=== PATIENT | female | born 1990 | race Caucasian/White ===

== ENCOUNTER 2019-02-25 14:53 | Outpatient (CLI) | payer BC | END 2019-02-25 14:54 | disposition home or self-care (01) | LOC: LAB 14:53 | PROVIDERS: ATTEND Nurse Practitioner Obstetrics & Gynecology | DX: Z32.01 Encounter for pregnancy test, result positive (principal) | CPT/HCPCS: 36415; 84702 ==

== ENCOUNTER 2019-04-05 08:11 | Outpatient (CLI) | payer BC ==
--- NOTE | 2019-04-05 10:36 | Ultrasound Report ---
Reason: TEST POSITIVE Procedure Date: 04/05/2019 Accession Number: [id number] / [id number] Procedure: US - OB First Trimester CPT Code: Final Report FULL RESULT: EXAM: PELVIC ULTRASOUND EXAM DATE: 04/05/2019 09:19 AM. CLINICAL HISTORY: TEST POSITIVE. COMPARISON: None. TECHNIQUE: Realtime transabdominal pelvic scan performed to identify the uterus and adnexa and as an overview of other pelvic structures, followed by transvaginal scan to provide greater detail of the uterus and adnexa, with static image documentation. FINDINGS: Uterus: 5 x 3 x 10 cm, volume cc. Anteverted position. Normal overall size and echotexture. Masses: None. Endometrium: 7 mm. Normal. No intrauterine gestational sac. Cervix: Unremarkable. Right Ovary: 3.5 x 1.7 x 2.1 cm, volume 6.5 cc. Normal echotexture and blood flow. Left Ovary: 2.5 x 2.0 2.0 cm, volume 5.2 cc. Normal echotexture and blood flow. Free Fluid: None. Other: None. IMPRESSION: 1. No intrauterine gestational sac. 2. Sonographically normal uterus and adnexa. Discussed findings with BERNIE GARCIA
== END 2019-04-05 08:12 | disposition home or self-care (01) ==
LOC: DI 08:11
PROVIDERS: ATTEND Nurse Practitioner Obstetrics & Gynecology
DX: Z32.01 Encounter for pregnancy test, result positive (principal); O03.9 Complete or unspecified spontaneous abortion without complication
CPT/HCPCS: 36415; 76801; 84702

== ENCOUNTER 2019-04-05 14:35 | Outpatient (CLI) | payer BC | END 2019-04-05 14:36 | disposition home or self-care (01) | LOC: LAB.S 14:35 | PROVIDERS: ATTEND Nurse Practitioner Obstetrics & Gynecology | DX: O03.9 Complete or unspecified spontaneous abortion without complication (principal) | CPT/HCPCS: 36415; 84702 ==

== ENCOUNTER 2020-01-22 12:16 | Outpatient (CLI) | payer OTHER | END 2020-01-22 12:17 | disposition home or self-care (01) | LOC: COV 12:16 | PROVIDERS: ATTEND Family Medicine | DX: Z20.828 Contact with and (suspected) exposure to other viral communicable diseases (principal) ==

== ENCOUNTER 2020-04-19 17:03 | Outpatient (CLI) | payer OTHER ==
[2020-04-19 17:20] LABS: HGB - HEMOGLOBIN 14.3 g/dL (12.0-16.0); MEAN CORPUSCULAR HEMOGLOBIN 29.7 pg (27.0-31.0); MEAN CORPUSCULAR HGB CONC 33.4 g/dL (32.0-36.0); MEAN PLATELET VOLUME 9.7 fL (7.9-10.8); RED BLOOD COUNT 4.81 10^6/uL (4.20-5.40); RED CELL DISTRIBUTION WIDTH 12.1 % (12.0-15.0); WHITE BLOOD COUNT 8.9 x10^3/uL (4.8-10.8)
[2020-04-19 17:46] LABS: T4 (THYROXINE) 6.43 ug/dL (6.09-12.23)
[2020-04-19 17:50] LABS: THYROID STIMULATING HORMONE 1.55 uIU/mL (0.34-5.60)
== END 2020-04-19 17:04 | disposition home or self-care (01) ==
LOC: LAB 17:03
PROVIDERS: ATTEND Nurse Practitioner Obstetrics & Gynecology
DX: N93.9 Abnormal uterine and vaginal bleeding, unspecified (principal)
CPT/HCPCS: 84436; 84443; 85027

== ENCOUNTER 2020-05-06 14:07 | Outpatient (CLI) | payer OTHER ==
--- NOTE | 2020-05-06 16:28 | Ultrasound Report ---
PROCEDURE: Pelvic w/Transvaginal INDICATIONS: MENSTRUAL BLEEDING, ABN TECHNIQUE: Real-time scanning was performed of the pelvic organs, with image documentation. Additional endovagi nal scanning was necessary due to incomplete visualization of the adnexal and endometrial structures by transabdominal scanning. COMPARISON: None. FINDINGS: No pathologic free abdominal or pelvic fluid. Uterus: Uterus is normal in size at 8.9 x 4.3 x 5.0 cm. Volume measures 10 2 mL. The endometrium me asures 7 mm in combined thickness. Nabothian cysts are noted. Ovaries: Left ovary measures 3.0 x 1.9 x 2.3 cm, volume 6.8 mL. Multiple cysts are noted, all less t cortez 1 cm in size. Right ovary measures 2.1 x 1.5 x 1.9 cm, volume 3.2 mL. Multiple cysts are noted all less than 1 cm i n size. IMPRESSION: Unremarkable exam. Reviewed by: Aruna Trujillo MD on 05/06/2020 4:27 PM PST Approved by: Aruna Trujillo MD on 05/06/2020 4:27 PM PST Station ID: [id number]
== END 2020-05-06 14:08 | disposition home or self-care (01) ==
LOC: DI 14:07
PROVIDERS: ATTEND Nurse Practitioner Obstetrics & Gynecology
DX: N93.9 Abnormal uterine and vaginal bleeding, unspecified (principal)

== ENCOUNTER 2020-06-20 18:51 | Outpatient (CLI) | payer OTHER ==
--- NOTE | 2020-06-21 08:30 | Ultrasound Report ---
PROCEDURE: Pelvic Complete INDICATIONS: LOWER ABD PAIN TECHNIQUE: Real-time transabdominal scanning was performed of the pelvic organs, with image documentation. COMPARISON: 05/06/2020 pelvic ultrasound FINDINGS: Uterus: Uterus is normal in size at 4.2 x 5.1 x 10.4 cm. Endometrium measures 3.4 mm in combined th ickness. Ovaries: The right ovary measures 3.1 x 2.3 x 2.4 cm and the left measures 2.5 x 2.1 x 2.6 cm. A fol licular cyst on the left isn't 1.1 cm in maximal dimension. Transabdominal scanning only at patient r equest. Other: No free pelvic fluid. IMPRESSION: Normal pelvic ultrasound. Small follicular cyst incidentally noted at the left ovary. A definite sour ce of pain is not found. Reviewed by: Dre White MD on 06/21/2020 8:28 AM PDT Approved by: Dre White MD on 06/21/2020 8:28 AM PDT Station ID: [id number]
== END 2020-06-20 18:52 | disposition home or self-care (01) ==
LOC: DI 18:51
PROVIDERS: ATTEND Family Medicine
DX: R10.30 Lower abdominal pain, unspecified (principal); N83.02 Follicular cyst of left ovary

== ENCOUNTER 2020-10-28 08:00 | Outpatient (CLI) | payer OTHER ==
[2020-10-28 16:19] LABS: MUDS CUTOFF CONCENTRATIONS CUTOFF CONC BELOW:
[2020-10-28 16:44] LABS: BILIRUBIN,URINE NEGATIVE (NEGATIVE); GLUCOSE, URINE (UA) NEGATIVE (NEGATIVE); KETONES,URINE (UA) NEGATIVE (NEGATIVE); LEUKOCYTE ESTERASE, URINE NEGATIVE (NEGATIVE); NITRITE,URINE NEGATIVE (NEGATIVE); OCCULT BLOOD,URINE NEGATIVE (NEGATIVE); PROTEIN,URINE NEGATIVE (NEGATIVE); UROBILINOGEN,URINE 0.2 (NORMAL) E.U./dL (NORMAL)
[2020-10-28 16:57] LABS: AMPHETAMINE SCREEN,URINE NEGATIVE (NEGATIVE); BARBITURATE SCREEN,UR NEGATIVE (NEGATIVE); BENZODIAZEPINES SCREEN, URINE NEGATIVE (NEGATIVE); CLARITY,URINE CLEAR (CLEAR); COCAINE SCREEN URINE NEGATIVE (NEGATIVE); METHADONE SCREEN, URINE NEGATIVE (NEGATIVE); METHAMPHETAMINES SCREEN, URINE NEGATIVE (NEGATIVE); OPIATE SCREEN, URINE POSITIVE (NEGATIVE); OXYCODONE SCREEN, URINE NEGATIVE (NEGATIVE); PROPOXYPHENE SCREEN, URINE NEGATIVE (NEGATIVE); THC CANNABINOID SCREEN, URINE NEGATIVE (NEGATIVE); TRICYCLIC ANTIDEPRESSANT,URINE NEGATIVE (NEGATIVE)
[2020-10-28 18:37] LABS: BACTERIA,URINE None Seen /HPF (None Seen); RBC,URINE None Seen /HPF (0-5); SQUAMOUS EPITHELIAL CELL,UR RARE Squamous (<= Few); WBC,URINE 0-3 /HPF (0-5)
== END 2020-10-28 23:59 | disposition home or self-care (01) ==
LOC: LAB.WC 08:00
PROVIDERS: ATTEND Obstetrics & Gynecology
DX: Z32.01 Encounter for pregnancy test, result positive (principal)
CPT/HCPCS: 80306; 80361; 80365; 81001; 81599; 87086

== ENCOUNTER 2020-10-29 07:39 | Outpatient (CLI) | payer OTHER | END 2020-10-29 07:40 | disposition home or self-care (01) | LOC: LAB.S 07:39 | PROVIDERS: ATTEND Obstetrics & Gynecology | DX: Z32.01 Encounter for pregnancy test, result positive (principal); Z87.59 Personal history of other complications of pregnancy, childbirth and the puerperium | CPT/HCPCS: 36415; 84702 ==

== ENCOUNTER 2020-11-01 07:43 | Outpatient (CLI) | payer OTHER | END 2020-11-01 07:44 | disposition home or self-care (01) | LOC: LAB.S 07:43 | PROVIDERS: ATTEND Family Medicine | DX: Z32.01 Encounter for pregnancy test, result positive (principal); Z87.59 Personal history of other complications of pregnancy, childbirth and the puerperium | CPT/HCPCS: 36415; 84702 ==

== ENCOUNTER 2020-11-04 07:46 | Outpatient (CLI) | payer OTHER | END 2020-11-04 07:47 | disposition home or self-care (01) | LOC: LAB.S 07:46 | PROVIDERS: ATTEND Obstetrics & Gynecology | DX: Z32.01 Encounter for pregnancy test, result positive (principal); Z87.59 Personal history of other complications of pregnancy, childbirth and the puerperium | CPT/HCPCS: 36415; 84702 ==

== ENCOUNTER 2020-11-08 07:54 | Outpatient (CLI) | payer OTHER | END 2020-11-08 07:55 | disposition home or self-care (01) | LOC: LAB.S 07:54 | PROVIDERS: ATTEND Obstetrics & Gynecology | DX: Z32.01 Encounter for pregnancy test, result positive (principal); Z87.59 Personal history of other complications of pregnancy, childbirth and the puerperium | CPT/HCPCS: 36415; 84702 ==

== ENCOUNTER 2020-11-11 07:55 | Outpatient (CLI) | payer OTHER | END 2020-11-11 07:56 | disposition home or self-care (01) | LOC: LAB.S 07:55 | PROVIDERS: ATTEND Obstetrics & Gynecology | DX: Z32.01 Encounter for pregnancy test, result positive (principal); Z87.59 Personal history of other complications of pregnancy, childbirth and the puerperium | CPT/HCPCS: 36415; 84702 ==

== ENCOUNTER 2020-11-14 07:32 | Outpatient (CLI) | payer OTHER | END 2020-11-14 07:33 | disposition home or self-care (01) | LOC: LAB.S 07:32 | PROVIDERS: ATTEND Obstetrics & Gynecology | DX: Z32.01 Encounter for pregnancy test, result positive (principal); Z87.59 Personal history of other complications of pregnancy, childbirth and the puerperium | CPT/HCPCS: 36415; 84702 ==

== ENCOUNTER 2020-11-19 06:46 | Outpatient (CLI) | payer OTHER ==
--- NOTE | 2020-11-19 16:58 | Ultrasound Report ---
PROCEDURE: OB First Trimester INDICATIONS: POSITIVE PREG TEST, H/O SPONTANEOUS AB OUTSIDE/PRIOR DATING DATA: Last menstrual period (LMP): 09/15/2020. LMP-based estimated date of delivery (ANGELA): 06/30/2021. First dating scan (date and location): 11/19/2020. Estimated date of delivery (ANGELA) from first dating scan: 06/29/2021. TECHNIQUE: Real-time scanning was performed of the fetus and maternal pelvic organs, with image documentation. COMPARISON: None FINDINGS: Embryo: Single live intrauterine is identified with crown-rump length measuring 1.8 cm cor responding to ultrasound gestational age of 8 weeks 2 days. No visualized subchorionic hemorrhage. Heart rate: 166 bpm. Maternal organs: Ovaries are unremarkable. IMPRESSION: 1. Single live intrauterine with ultrasound gestational age of 8 weeks 2 days. Reviewed by: Aruna Trujillo MD on 11/19/2020 4:57 PM PDT Approved by: Aruna Trujillo MD on 11/19/2020 4:57 PM PDT Station ID: [id number]
== END 2020-11-19 06:47 | disposition home or self-care (01) ==
LOC: DI 06:46
PROVIDERS: ATTEND Obstetrics & Gynecology
DX: Z32.01 Encounter for pregnancy test, result positive (principal); Z87.59 Personal history of other complications of pregnancy, childbirth and the puerperium

== ENCOUNTER 2020-11-27 08:00 | Outpatient (CLI) | payer OTHER ==
[2020-11-27 23:17] LABS: CHLAMYDIA TRACHOMATIS DNA NEGATIVE (NEGATIVE); NEISSERIA GONORRHOEAE DNA NEGATIVE (NEGATIVE); TRICHOMONAS VAGINALIS DNA NEGATIVE (NEGATIVE)
== END 2020-11-27 23:59 | disposition home or self-care (01) ==
LOC: LAB.WC 08:00
PROVIDERS: ATTEND Nurse Practitioner Obstetrics & Gynecology
DX: Z34.90 Encounter for supervision of normal pregnancy, unspecified, unspecified trimester (principal); Z36.89 Encounter for other specified antenatal screening
CPT/HCPCS: 87491; 87591; 87661

== ENCOUNTER 2020-12-04 08:10 | Outpatient (CLI) | payer OTHER ==
[2020-12-04 08:43] LABS: BASOPHILS # (AUTO) 0.1 10^3/uL (0.0-0.1); BASOPHILS % (AUTO) 0.5 %; EOSINOPHILS # (AUTO) 0.2 10^3/uL (0.0-0.7); EOSINOPHILS % (AUTO) 1.7 %; HCT - HEMATOCRIT 37.9 % (37.0-47.0); HGB - HEMOGLOBIN 12.9 g/dL (12.0-16.0); LYMPHOCYTES # (AUTO) 2.3 10^3/uL (1.5-3.5); LYMPHOCYTES % (AUTO) 23.4 %; MEAN CORPUSCULAR HEMOGLOBIN 30.4 pg (27.0-31.0); MEAN CORPUSCULAR VOLUME 89.2 fL (81.0-99.0); MEAN PLATELET VOLUME 9.3 fL (7.9-10.8); MONOCYTES # (AUTO) 0.5 10^3/uL (0.0-1.0); MONOCYTES % (AUTO) 4.9 %; NEUTROPHILS # (AUTO) 6.8 10^3/uL (1.5-6.6); PLT - PLATELET COUNT 252 10^3/uL (130-450); RED BLOOD COUNT 4.25 10^6/uL (4.20-5.40); RED CELL DISTRIBUTION WIDTH 12.2 % (12.0-15.0); WHITE BLOOD COUNT 9.8 x10^3/uL (4.8-10.8)
[2020-12-05 12:08] LABS: HEPATITIS B SURFACE ANTIGEN NON-REACTIVE (NON-REACTIVE); HEPATITIS C ANTIBODY NON-REACTIVE (NON-REACTIVE)
[2020-12-05 16:12] LABS: HIV AG/AB 4TH GEN NON-REACTIVE (NON-REACTIVE)
== END 2020-12-04 08:11 | disposition home or self-care (01) ==
LOC: LAB 08:10
PROVIDERS: ATTEND Nurse Practitioner Obstetrics & Gynecology
DX: Z34.90 Encounter for supervision of normal pregnancy, unspecified, unspecified trimester (principal); Z36.0 Encounter for antenatal screening for chromosomal anomalies; Z83.49 Family history of other endocrine, nutritional and metabolic diseases; Z36.89 Encounter for other specified antenatal screening
CPT/HCPCS: 36415; 85025; 86592; 86762; 86787; 86803; 86850; 86900; 86901; 87340; 87389

== ENCOUNTER 2021-01-14 11:52 | Outpatient (CLI) | payer OTHER | END 2021-01-14 11:53 | disposition home or self-care (01) | LOC: LAB 11:52 | PROVIDERS: ATTEND Nurse Practitioner Obstetrics & Gynecology | DX: Z36.0 Encounter for antenatal screening for chromosomal anomalies (principal) | CPT/HCPCS: 81599; 82105 ==

== ENCOUNTER 2021-02-10 07:20 | Outpatient (CLI) | payer OTHER ==
--- NOTE | 2021-02-10 09:22 | Ultrasound Report ---
PROCEDURE: OB Detailed Eval INDICATIONS: SUPERVISION OF OUTSIDE/PRIOR DATING DATA: Last menstrual period (LMP): 09/23/2020. LMP-based estimated date of delivery (ANGELA): 06/30/2021. First dating scan (date and location): 11/19/2020. Estimated date of delivery (ANGELA) from first dating scan: 06/29/2021. The below data below was generated using the ultrasound ANGELA of 06/29/2021 TECHNIQUE: Real-time scanning was performed of the fetus, with image documentation and biometric measurements. Endovaginal scanning: Not performed. COMPARISON: 11/19/2020. FINDINGS: General: A single living intrauterine gestation is present. Presentation: Cephalic Placenta: Placental position is anterior, without previa. Amniotic fluid index: 11 cm, normal for gestational age. Largest pocket 3.1 cm heart rate: 151 beats per minute. Maternal cervical canal: 4.1 cm long; normal length is 2.5 cm or more. biometrics: Biparietal diameter: 4.98 cm, 21 weeks 1 day Head circumference: 18.0 cm, 20 weeks 3 days Abdominal circumference: 15.85 cm, 21 weeks 0 days Femur length: 3.45 cm, 20 weeks 6 days Estimated gestational age from initial scan: 20 weeks 1 day Composite gestational age from present scan: 20 weeks 6 days Estimated weight and percentile: 384 g 84th percentile. Measurement variability in biometric dating: +/- 10 days from 12-20 weeks gestation, +/- 2 weeks from 20-30 weeks gestation, +/- 3 weeks at 30 weeks gestation or later. Anatomic survey: Neuro: Ventricles are normal at less than 10 mm. Cisterna magna is normal at 3-11 mm. Cerebellum i s normal in size and morphology. Nuchal skin fold: Normal at less than 6 mm between 14 and 20 weeks gestational age. Face: Nose and lips, facial profile are normal. Spine: No evidence for spina bifida. Heart: 4-chambered heart is present, with normal ventricular outflow tracts. Diaphragm: Diaphragm is intact. Stomach: Left-sided stomach is present. Kidneys: No hydronephrosis. Normal is less than 5 mm in 2nd trimester, less than 7 mm in 3rd trimester. Cord: 3 vessel cord has orthotopic insertion. Bladder: Normal in size. Extremities: All 4 extremities are visualized. IMPRESSION: 1. [place]aley living intrauterine at 20 weeks 6 days based on today's ultrasound. This is co ncordant with the first trimester ultrasound. There is expected interval growth. This is in the 84th percentile for weight. 2. Normal placenta and amniotic fluid. 3. Normal and complete anatomic survey. Reviewed by: Jeremy Jeong MD on 02/10/2021 9:20 AM [facility] Approved by: Jeremy Jeong MD on 02/10/2021 9:20 AM [facility] Station ID: [id number]
== END 2021-02-10 07:21 | disposition home or self-care (01) ==
LOC: DI 07:20
PROVIDERS: ATTEND Nurse Practitioner Obstetrics & Gynecology
DX: Z34.02 Encounter for supervision of normal first pregnancy, second trimester (principal); Z36.0 Encounter for antenatal screening for chromosomal anomalies

== ENCOUNTER 2021-04-01 02:04 | Emergency (ER) | payer OTHER ==
[2021-04-01 02:45] LABS: BILIRUBIN,URINE NEGATIVE (NEGATIVE); CLARITY,URINE CLEAR (CLEAR); GLUCOSE, URINE (UA) NEGATIVE (NEGATIVE); KETONES,URINE (UA) NEGATIVE (NEGATIVE); LEUKOCYTE ESTERASE, URINE NEGATIVE (NEGATIVE); NITRITE,URINE NEGATIVE (NEGATIVE); OCCULT BLOOD,URINE SMALL (NEGATIVE); PH,URINE 6.5 PH (5.0-7.5); PROTEIN,URINE NEGATIVE (NEGATIVE); UROBILINOGEN,URINE 0.2 (NORMAL) E.U./dL (NORMAL)
[2021-04-01 02:51] LABS: AMORPHOUS SEDIMENT,UR Marked /LPF; BACTERIA,URINE None Seen /HPF (None Seen); SQUAMOUS EPITHELIAL CELL,UR RARE Squamous (<= Few); WBC,URINE 0-3 /HPF (0-5)
[2021-04-01 03:05] LABS: BASOPHILS % (AUTO) 0.3 %; EOSINOPHILS # (AUTO) 0.1 10^3/uL (0.0-0.7); EOSINOPHILS % (AUTO) 0.4 %; HCT - HEMATOCRIT 40.6 % (37.0-47.0); HGB - HEMOGLOBIN 13.7 g/dL (12.0-16.0); LYMPHOCYTES # (AUTO) 2.3 10^3/uL (1.5-3.5); LYMPHOCYTES % (AUTO) 15.6 %; MEAN CORPUSCULAR HEMOGLOBIN 31.2 pg (27.0-31.0); MEAN CORPUSCULAR HGB CONC 33.7 g/dL (32.0-36.0); MEAN CORPUSCULAR VOLUME 92.5 fL (81.0-99.0); MEAN PLATELET VOLUME 9.1 fL (7.9-10.8); MONOCYTES # (AUTO) 0.6 10^3/uL (0.0-1.0); MONOCYTES % (AUTO) 4.2 %; NEUTROPHILS # (AUTO) 11.6 10^3/uL (1.5-6.6); NEUTROPHILS % (AUTO) 78.5 %; PLT - PLATELET COUNT 266 10^3/uL (130-450); RED BLOOD COUNT 4.39 10^6/uL (4.20-5.40); RED CELL DISTRIBUTION WIDTH 12.2 % (12.0-15.0); WHITE BLOOD COUNT 14.8 x10^3/uL (4.8-10.8)
[2021-04-01 03:16] LABS: ALBUMIN 3.5 g/dL (3.2-5.5); BILIRUBIN,TOTAL 0.5 mg/dL (0.2-1.0); CALCIUM 9.2 mg/dL (8.5-10.3); CREATININE 0.8 mg/dL (0.4-1.0); POTASSIUM 3.6 mmol/L (3.5-5.0); TOTAL PROTEIN 6.9 g/dL (6.7-8.2)
--- NOTE | 2021-04-01 03:43 | ED Physician Documentation ---
PD HPI NVD - Stated complaint Stated Complaint: BLOOD IN VOMIT - Chief complaint Chief Complaint: Abd Pain - History obtained from History obtained from: Patient - History of Present Illness Timing - onset: Yesterday Timing - details: Abrupt onset Pain level now: 8 Associated symptoms: No: Fever Improved by: Other (nothing) Worsened by: Other (no exacerbating factors) Similar symptoms before: Has not had sx before Recently seen: Not recently seen - Additonal information Additional information: patient is 27 weeks , has had two US thus far in this . This is her second , first ended in spontaneous miscarriage. Chief complaint is left flank pain, sudden onset without specific inciting event at 2 PM while at work, associated with nausea and vomiting. The pain subsided but suddenly returned at approximately midnight and was more severe, again with nausea and vomiting. 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 She denies pelvic cramping, denies vaginal bleeding. She has not had similar symptoms in the past Review of Systems Constitutional: reports: Reviewed and negative Cardiac: reports: Reviewed and negative Respiratory: reports: Reviewed and negative GI: reports: Nausea, Vomiting. denies: Abdominal Pain : reports: Dysuria, Frequency Musculoskeletal: reports: Back pain (left low back radiating to left flank) PD PAST MEDICAL HISTORY - Past Medical History Past Medical History: No - Present Medications Home Medications: Ambulatory Orders Medication Instructions Recorded Confirmed HYDROcod/ACETAM 5/325 [[place] 5/325] 1 - 2 ea PO Q6H PRN #14 tablet 04/01/21 Ondansetron Odt [Zofran] 4 mg TL Q6H PRN #10 tablet 04/01/21 - Allergies Allergies/Adverse Reactions: Allergies Allergy/AdvReac Type Severity Reaction Status Date / Time Cephalosporins Allergy Unknown Verified 04/01/21 02:18 PD ED PE NORMAL - Vitals Vital signs reviewed: Yes - General General: Alert and oriented X 3, Well developed/nourished, Other (appears to be uncomfortable due to pain) - HEENT HEENT: Moist mucous membranes - Cardiac Cardiac: RRR, No murmur - Respiratory Respiratory: No respiratory distress, Clear bilaterally - Abdomen Abdomen: Soft, Non tender - Back Back: No CVA TTP Results - Vitals Vitals: Oxygen O2 Source Room air - Labs Labs: Laboratory Tests 04/01/21 04/01/21 04/01/21 02:15 03:01 03:01 WBC 14.8 H RBC 4.39 Hgb 13.7 Hct 40.6 MCV 92.5 MCH 31.2 H MCHC 33.7 RDW 12.2 Plt Count 266 MPV 9.1 Neut # (Auto) 11.6 H Lymph # (Auto) 2.3 [place] # (Auto) 0.6 Eos # (Auto) 0.1 Baso # (Auto) 0.0 Absolute Nucleated RBC 0.00 Nucleated RBC % 0.0 Sodium 137 Potassium 3.6 Chloride 101 Carbon Dioxide 25 Anion Gap 11.0 BUN 13 Creatinine 0.8 Estimated GFR (MDRD) 84 L Glucose 110 H Calcium 9.2 Total Bilirubin 0.5 AST 25 ALT 26 Alkaline Phosphatase 54 Total Protein 6.9 Albumin 3.5 Globulin 3.4 Albumin/Globulin Ratio 1.0 Lipase 23 Urine Color YELLOW Urine Clarity CLEAR Urine pH 6.5 Ur Specific [place] >=1.030 H Urine Protein NEGATIVE Urine Glucose (UA) NEGATIVE Urine Ketones NEGATIVE Urine Occult Blood SMALL H Urine Nitrite NEGATIVE Urine Bilirubin NEGATIVE Urine Urobilinogen 0.2 (NORMAL) Ur Leukocyte Esterase NEGATIVE Urine RBC 6-10 H Urine WBC 0-3 Ur Squamous Epith Cells RARE Squamous Amorphous Sediment Marked Urine Bacteria None Seen Ur Microscopic Review INDICATED Urine Culture Comments NOT INDICATED - Rads (name of study) retroperitoneal US Radiology: Prelim report reviewed, See rad report PD MEDICAL DECISION MAKING - ED course Complexity details: reviewed results, re-evaluated patient, considered differential, d/w patient ED course: presents with left flank pain of sudden onset with nausea and vomiting. she is 27 weeks . UA shows hematuria but no suggestion of infection. Suspect renal colic. She is given IV fluids, zofran, and morphine with moderate relief. Care of patient signed out to Dr. Garcia at end of my shift pending US and reevaluation Departure - Departure Disposition: 01 Home, Self Care Clinical Impression: Ureteral calculus, left, Flank pain, Condition: Good Instructions: ED Stone Renal W Colic Follow-Up: Jonathon Garza MD [Primary Care Provider] - Yeny Alcala MD [Provider Admit Priv/Credential] - Within 1 week Prescriptions: HYDROcod/ACETAM 5/325 [[place] 5/325] 1 - 2 ea PO Q6H PRN #14 tablet PRN Reason: Pain Ondansetron Odt [Zofran] 4 mg TL Q6H PRN #10 tablet PRN Reason: Nausea / Vomiting Comments: Your prescriptions were sent to [facility] in [place]. It appears likely that you have a ureteral stone today. We do not know the size of the stone, therefore there is a chance that this may not pass. If you start to develop fevers, uncontrolled pain or other new or worrisome symptoms. You will need to return to the emergency department for further care. I am prescribing a short course of narcotic pain medication for you. These are potentially dangerous and addictive medications that should be used carefully. These medications may constipate you. Take an aedl-ryo-rrswbbh stool softener (docusate) twice daily with plenty of water while taking these medications. If you go 24 hours without a bowel movement, take nvir-ycb-khnazbn miralax, per package instructions. Do not drink or drive while taking these medications. If you received narcotic or sedating medications while in the emergency department, do not drive for 24 hours. Store this medication in a safe, secure place and out of reach of children. It is a violation of federal law to give or sell this medication to another per son or to use in a manner other than prescribed. The ED will not refill narcotic prescriptions, including prescriptions lost or stolen. To dispose of unwanted medications: 1. [facility] at [address] in [place] has a medication drop box. They accept prescription medications (in pill form) Wednesday through Wednesday 9:00 a.m. to 5:00 p.m. 2. The [facility] [employer] accepts prescription medications (in pill form only) for disposal year round. Call for more information. 3. Contact the [facility] for the next [facility] sponsored prescription drug collection event. , [phone], or [phone]; Discharge Date/Time: 04/01/21 10:54
[2021-04-01] MEDS ORDERED: SODIUM CHLORIDE 0.9% 1,000 ML IV STA (04:13)
[2021-04-01] MEDS ORDERED: ONDANSETRON 4 MG/2 ML VIAL IVP STA ×2 (04:13→05:58)
[2021-04-01] MEDS ORDERED: MORPHINE 2 MG/ML CARPUJECT IVP STA ×2 (04:13→05:58)
[2021-04-01] MEDS ORDERED: HYDROcod/ACETAM 5/325 MG TABLET PO STA ×2 (07:39→10:39)
--- NOTE | 2021-04-01 10:24 | Ultrasound Report ---
PROCEDURE: Retroperitoneal INDICATIONS: left flank pain TECHNIQUE: Real-time scanning was performed of the kidneys and bladder, with image documentation. COMPARISON: Obstetrical ultrasound dated 02/10/2021 FINDINGS: Kidneys: Kidneys are normal in size. Right kidney measures 11.6 cm long; left kidney measures 13.8 cm long. Right renal cortical thickness is 1.5 cm; left renal cortical thickness is 0.2 cm. Renal c ortical echotexture is normal. There is mild to moderate left hydronephrosis and spleen. Minimal left perinephric fluid. No suspicious solid mass lesions. Bladder: Pre-void bladder volume is 92 mL. Post-void residual is 2 mL. Pre-void images demonstrate no intraluminal masses or stones. On pre-void images, bilateral ureteral jets are noted with color Doppler interrogation. (Of note, ureteral jets may not be detectable in up to 25% of cases due to in sufficient differences in specific gravity between ureteral and bladder urine). Miscellaneous: No free pelvic fluid. IMPRESSION: 1. Mild left hydronephrosis. This may simply represent hydronephrosis of . However, there is a small amount of perinephric fluid. Although there is a left ureteral jet, a left ureteral stone is not completely excluded. A preliminary report was given to the referring clinician by the burglar alarm mechanic at the time of study com pletion. Reviewed by: Eagle Mohr MD on 04/01/2021 10:23 AM [facility] Approved by: Eagle Mohr MD on 04/01/2021 10:23 AM PST Station ID: [id number]
[2021-04-01 10:33] VITALS: BP 104/64
--- NOTE | 2021-04-01 10:40 | ED Physician Documentation ---
ED Addendum - Addendum Addendum: 04/01/21 10:38 Patient was signed out to me by Dr. Hawley awaiting a retroperitoneal u ltrasound. The retroperitoneal ultrasound is consistent with a ureteral stone. We will place the patient on pain medication and nausea medication for home. She states she feels much better. Patient is afebrile. Tolerating p.o. without difficulty. Discussed emergent return precautions including fever, uncontrolled pain. I am prescribing a short course of short-acting opioid pain medication f or this patient. I have reviewed the patients MUSEUM ASSISTANT and no concerning findings were noted. I have discussed that the opioids are for short term therapy only, and will not be refilled from the ED. patient counseled regarding signs and symptoms for which I believe and urgent re-evaluation would be necessary. Patient with good understanding of and agreement to plan and is comfortable going home at this time This document was made in part using voice recognition software. While efforts are made to proofread this document, sound alike and grammatical errors may occur. Departure - Departure Disposition: 01 Home, Self Care Clinical Impression: Ureteral calculus, left, Flank pain Qualifiers: Weeks of gestation: 27 weeks Qualified Code(s): Z3A.27 - 27 weeks gestation of Condition: Good Instructions: ED Stone Renal W Colic Follow-Up: Jonathon Garza MD [Primary Care Provider] - Yeny Alcala MD [Provider Admit Priv/Credential] - Within 1 week Prescriptions: HYDROcod/ACETAM 5/325 [[place] 5/325] 1 - 2 ea PO Q6H PRN #14 tablet PRN Reason: Pain Ondansetron Odt [Zofran] 4 mg TL Q6H PRN #10 tablet PRN Reason: Nausea / Vomiting Comments: Your prescriptions were sent to [facility] in [place]. It appears likely that you have a ureteral stone today. We do not know the size of the stone, therefore there is a chance that this may not pass. If you start to develop fevers, uncontrolled pain or other new or worrisome symptoms. You will need to return to the emergency department for further care. I am prescribing a short course of narcotic pain medication for you. These are potentially dangerous and addictive medications that should be used carefully. These medications may constipate you. Take an vmpq-mar-kncmtfd stool softener (docusate) twice daily with plenty of water while taking these medications. If you go 24 hours without a bowel movement, take uvkc-efq-rimhqes miralax, per package instructions. Do not drink or drive while taking these medications. If you received narcotic or sedating medications while in the emergency department, do not drive for 24 hours. Store this medication in a safe, secure place and out of reach of children. It is a violation of federal law to give or sell this medication to another person or to use in a manner other than prescribed. The ED will not refill narcotic prescriptions, including prescriptions lost or stolen. To dispose of unwanted medications: 1. [facility] at [address] in [place] has a medication drop box. They accept prescription medications (in pill form) Wednesday through Wednesday 9:00 a.m. to 5:00 p.m. 2. The [facility] Department accepts prescription medications (in pill form only) for disposal year round. Call for more information. 3. Contact the [facility] for the next [facility] sponsored prescription drug collection event. , [phone], or [phone];
== END 2021-04-01 10:54 | disposition home or self-care (01) ==
LOC: ED 02:04
DX: O99.891 Other specified diseases and conditions complicating pregnancy (principal); N13.2 Hydronephrosis with renal and ureteral calculous obstruction; Z3A.27 27 weeks gestation of pregnancy
CPT/HCPCS: 36415; 76770; 80053; 81001; 83690; 85025; 96361; 96374; 96375; 96376; 99283; 99284; A9270; 81003; 87086

== ENCOUNTER 2021-04-04 08:56 | Outpatient (CLI) | payer OTHER | END 2021-04-04 08:57 | disposition home or self-care (01) | LOC: LAB.S 08:56 | PROVIDERS: ATTEND Obstetrics & Gynecology | DX: Z34.90 Encounter for supervision of normal pregnancy, unspecified, unspecified trimester (principal); Z36.0 Encounter for antenatal screening for chromosomal anomalies | CPT/HCPCS: 36415; 82950; 86850 ==

== ENCOUNTER 2021-04-16 09:18 | Outpatient (CLI) | payer OTHER ==
[2021-04-16 15:11] LABS: HGB - HEMOGLOBIN 12.7 g/dL (12.0-16.0); MEAN CORPUSCULAR HEMOGLOBIN 30.7 pg (27.0-31.0); MEAN CORPUSCULAR HGB CONC 32.6 g/dL (32.0-36.0); MEAN CORPUSCULAR VOLUME 94.2 fL (81.0-99.0); MEAN PLATELET VOLUME 10.1 fL (7.9-10.8); RED BLOOD COUNT 4.14 10^6/uL (4.20-5.40); RED CELL DISTRIBUTION WIDTH 12.2 % (12.0-15.0); WHITE BLOOD COUNT 12.3 x10^3/uL (4.8-10.8)
== END 2021-04-16 09:19 | disposition home or self-care (01) ==
LOC: LAB.S 09:18
PROVIDERS: ATTEND Nurse Practitioner Obstetrics & Gynecology
DX: Z34.90 Encounter for supervision of normal pregnancy, unspecified, unspecified trimester (principal)
CPT/HCPCS: 36415; 85027

== ENCOUNTER 2021-06-11 14:00 | Outpatient (CLI) | payer OTHER | END 2021-06-11 23:59 | disposition home or self-care (01) | LOC: LAB.R 14:00 | PROVIDERS: ATTEND Nurse Practitioner Obstetrics & Gynecology | DX: Z36.85 Encounter for antenatal screening for Streptococcus B (principal) | CPT/HCPCS: 87797 ==

== ENCOUNTER 2021-06-30 17:54 | Inpatient (IN) | payer OTHER ==
[2021-06-30] MEDS ORDERED: LACTATED RINGERS 1,000 ML ONE (18:41)
[2021-06-30] MEDS ORDERED: OXYTOCIN 10 UNIT/ML VIAL IM PRN (18:48)
[2021-06-30] MEDS ORDERED: TRANEXAMIC ACID IN NACL 1,000 MG/100 ML BAG IV PRN (18:48)
[2021-06-30] MEDS ORDERED: OXYTOCIN/SODIUM CHLORIDE 500 ML IV PRN (18:48)
[2021-06-30] MEDS ORDERED: LIDOCAINE-MPF 1% 30 ML VIAL ID PRN (18:48)
[2021-06-30] MEDS ORDERED: METHYLERGONOVINE 0.2 MG/ML VIAL IM PRN (18:48)
[2021-06-30] MEDS ORDERED: CARBOPROST TROMETHAMINE 250 MCG/ML AMP IM PRN (18:48)
[2021-06-30] MEDS ORDERED: SODIUM CHLORIDE FLUSH 0.9% 10 ML SYRINGE IVP PRN (18:48)
[2021-06-30] MEDS ORDERED: LABETALOL 20 MG/4 ML SYRINGE IVP PRN (18:48)
[2021-06-30] MEDS ORDERED: miSOPROStoL 200 MCG TABLET PR PRN (18:48)
[2021-06-30] MEDS ORDERED: TERBUTALINE 1 MG/ML VIAL SUBQ PRN (18:48)
[2021-06-30] MEDS ORDERED: miSOPROStoL 200 MCG TABLET ONE (18:50)
[2021-06-30] MEDS ORDERED: OXYTOCIN/SODIUM CHLORIDE 500 ML IV ONE (18:50)
[2021-06-30] MEDS ORDERED: METHYLERGONOVINE 0.2 MG/ML VIAL ONE (18:51)
[2021-06-30] MEDS ORDERED: TRANEXAMIC ACID IN NACL 1,000 MG/100 ML BAG IV ONE (18:51)
--- NOTE | 2021-06-30 18:52 | HISTORY & PHYSICAL EXAMINATION ---
Admit History - Visit Reason Visit Reason: Contractions - : 2 Parity: 0 Premature: 0 Ectopic: 0 : 1 Care: positive: Other Risk/History: positive: None Complications This : positive: None Smoking Status: Never smoker - Mother's Labs Mother's RH: positive: Negative GBS: positive: Group B Step Negative Rubella Status: positive: Immune Meds/Allgy - Home Medications Home Medications: Ambulatory Orders Medication Instructions Recorded Confirmed HYDROcod/ACETAM 5/325 [[place] 5/325] 1 - 2 ea PO Q6H PRN #14 tablet 04/01/21 Ondansetron Odt [Zofran] 4 mg TL Q6H PRN #10 tablet 04/01/21 - Allergies Allergies/Adverse Reactions: Allergies Allergy/AdvReac Type Severity Reaction Status Date / Time Cephalosporins Allergy Unknown Verified 04/01/21 02:18 Review of Systems - Constitutional Constitutional: denies: Fatigue, Fever, Chills - Eyes Eyes: denies: Blurred vision, Spots in vision, Dipolpia - Cardiovascular Cariovascular: denies: Irregular heart rate, Palpitations, Chest pain, Edema - Respiratory Respiratory: denies: Cough, Wheezing, Snoring, SOB at rest - Gastrointestinal Gastrointestinal: denies: Nausea, Vomiting - Integumentary Integumentary: denies: Rash, Pruritis - Neurological Neurological: denies: Headache Physical - Abdominal Exam Vital Signs: Temp Pulse Resp BP Pulse Ox 37.1 C 82 18 125/76 98 06/30/21 18:09 06/30/21 18:09 06/30/21 18:09 06/30/21 18:09 06/30/21 18:09 Contraction Intensity: positive: Strong Uterine Resting Tone: positive: Soft - Monitoring Heart Rate Baseline: 150 Strip Review: positive: Category I - Presentation Presentation: positive: Vertex - Vaginal Exam Membranes: positive: Membranes intact Dilation (in cm): 8 Effacement (%): 90 Station: positive: 0 Cervical Position: positive: Anterior - Speculum Exam Speculum Exam Performed: positive: No Plan for Labor - Plan For Labor I expect patient to be DC'd or transferred within 96 hours.: Yes Plan for Labor: HPI: Marlee is a 31yo @ 40.0wks gestation by LMP c/w 8.2wk U/S who presents today with c/o contractions that began this morning at 0130 and they have progressed in frequency and intensity since that time. She denies vaginal bleeding however has experienced some mucousy discharged that she perceives as bloody show. She denies leakage of fluid. She presents today with her mom Addie and her Josh is on a flight on his way to be here. She has been a patient of [facility] for the last several visits and prior was a patient of [facility] being seen by myself (Leana Goode, ABDOULAYE/BERNIE) for the duration of her which has remained uncomplicated. She is noted to be Rh negative and received Rhogam at 28wks gestation following a negative antibody screen. Dating criteria: LMP 09/15/2020 Initial U/S @ 8.2wks gestation c/w LMP dating. 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 No ETOH or IVDA. 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 Family Hx: Cancer- PGF, MGF; asthma, brother; Diabetes - MGM; HTN- MGM course: A neg/antibody negative Rhogam 04/08/2021 Rubella immune; VZV immune Genetic testing - [place] negative - male sex; AFP negative FAS WNL. Anterior placenta, no previa. Size c/w dating. EFW 84%tile. 3VC Glucola 129 Influenza vaccine: 11/2020 COVID vaccine: #1 06/2020, #2 06/2020; Booster 02/19/2022 GBS negative @ 36.3wks HSV - denies in self and partner Last pap: 04/07/2019 WNL Physical Exam: Normocephalic, atraumatic Heart RRR w/o M/G/R Lungs CTAB Abdomen gravid, soft, nontender FHR baseline 150s, moderate variability, + accels, prolonged late deceleration x 1 upon arrival but no decelerations since that time Contractions palpate strong every 3-5 minutes with soft resting tone SVE 8/90/0, soft. Vertex. Bulging BOW - intact Bilateral LE's no edema Mood is good. Pain well controlled with breathing techniques and position changes. Assessment: 31yo @ 40.0wks gestation by LMP c/w 8.2wk U/S Active labor FHR Category I GBS neg Rh negative Plan: Admit for expectant management Continuous monitoring secondary to initial prolonged late deceleration Encouraged ambulation and position changes. Anticipate . Pt verbalized understanding and denies further questions or concerns at this time.
[2021-06-30] MEDS: LACTATED RINGERS 1,000 ML IV SCH (19:00)
[2021-06-30] MEDS ORDERED: SODIUM CHLORIDE FLUSH 0.9% 10 ML SYRINGE IVP SCH (19:00)
[2021-06-30 19:13] LABS: BASOPHILS % (AUTO) 0.2 %; EOSINOPHILS % (AUTO) 0.1 %; HCT - HEMATOCRIT 39.3 % (37.0-47.0); HGB - HEMOGLOBIN 13.3 g/dL (12.0-16.0); LYMPHOCYTES # (AUTO) 1.6 10^3/uL (1.5-3.5); LYMPHOCYTES % (AUTO) 9.6 %; MEAN CORPUSCULAR HEMOGLOBIN 30.9 pg (27.0-31.0); MEAN CORPUSCULAR HGB CONC 33.8 g/dL (32.0-36.0); MEAN CORPUSCULAR VOLUME 91.2 fL (81.0-99.0); MEAN PLATELET VOLUME 10.9 fL (7.9-10.8); MONOCYTES # (AUTO) 0.5 10^3/uL (0.0-1.0); MONOCYTES % (AUTO) 2.8 %; NEUTROPHILS # (AUTO) 14.4 10^3/uL (1.5-6.6); NEUTROPHILS % (AUTO) 86.8 %; PLT - PLATELET COUNT 214 10^3/uL (130-450); RED BLOOD COUNT 4.31 10^6/uL (4.20-5.40); RED CELL DISTRIBUTION WIDTH 11.9 % (12.0-15.0); WHITE BLOOD COUNT 16.6 x10^3/uL (4.8-10.8)
[2021-06-30 19:24] LABS: ALBUMIN 3.4 g/dL (3.2-5.5); BILIRUBIN,TOTAL 0.6 mg/dL (0.2-1.0); CREATININE 0.7 mg/dL (0.4-1.0); POTASSIUM 3.9 mmol/L (3.5-5.0); TOTAL PROTEIN 6.7 g/dL (6.7-8.2)
[2021-06-30] MEDS ORDERED: WITCH HAZEL/GLYCERIN 1 PAD TOP PRN (22:46)
[2021-06-30] MEDS ORDERED: HYDROCORTISONE 1% CREAM 28 GM TUBE PR PRN (22:46)
--- NOTE | 2021-06-30 22:56 | DELIVERY NOTE ---
Delivery Note - Labor Labor: positive: Spontaneous - Delivery Method Delivery Method: positive: Spontaneous vaginal delivery - Presentation Presentation: positive: Vertex, Compound, ABAD - left occiput anterior - Nuchal Cord Nuchal Cord: positive: None - Amniotic Fluid Description Amniotic Fluid Description: positive: Clear - Episiotomy Type Episiotomy Type: positive: None - Laceration Laceration: positive: 2nd degree, Perineal, Sulcus - Suture Suture Type: positive: Vicryl Suture Size: positive: 2-0, 4-0 - Delivery Outcome Delivery Outcome: positive: Livebirth - : positive: Placed in direct skin contact with mother, Bulb syringe, Stimulated, Warmed, [place] used [place] sex: positive: Male - Cord Cord: positive: 3 vessels - Placenta Placenta: positive: Intact, Spontaneous - Estimated Blood Loss Estimated Blood Loss (in cc): 200 - Post Delivery Events Post Delivery Events: positive: No post delivery events - Delivery Comments (Free Text/Narrative) Delivery Comments (Free Text/Narrative): This 31yo @ 40.0wks gestation by LMP c/w 8.2wk U/S presented on 07/01/19 22 at 1800 in active labor. SVE 8/90/0 and vertex. FHR pattern demonstrated Category I pattern initially followed by one prolonged late deceleration which recovered with fluid bolus and position changes. The remainder of her labor course was normal and FHR pattern was Category I pattern throughout. Pt progressed to c/c/0 @ 1934 with onset of active pushing at 1939. SROM occurred at 2117 and was noted to be a moderate amount of clear fluid. : Normal of a viable male on 06/30/2021 at 2138. No nuchal cord. The was placed on maternal abdomen, stimulated, dried, and placed skin to skin. 's were 9/9 at 1 and 5 minutes respectively. Pitocin administered via IV for hemostasis. The umbilical cord was allowed to stop pulsating at which time it was doubly clamped and cut by CNM. Cord blood was obtained. 3VC. Fundal massage and gentle cord traction applied for active management of the third stage. Placenta delivered spontaneously and intact at 2144. EBL 200mL. Fourth stage: Uterine fundus firm and there is no excessive bleeding. The perineum, vagina, and cervix were inspected and noted to have a 2nd degree left sulcus laceration and a left labial laceration which was repaired using a 2-0 vicryl and a 4-0 vicryl respectively. Both were repaired in standard fashion and under sterile conditions. Rectal and vaginal examination following repair was performed. Tissues well approximated. initiated. Family bonding well. Both mother and baby were left in stable condition.
[2021-07-01] MEDS: ACETAMINOPHEN 500 MG TABLET PO SCH ×3 (00:36→16:57)
[2021-07-01] MEDS: IBUPROFEN 800 MG TABLET PO SCH ×4 (00:37→19:52)
[2021-07-01] MEDS: DOCUSATE SODIUM 100 MG CAPSULE PO SCH ×2 (08:28→19:52)
[2021-07-01] MEDS ORDERED: RHO(D) IMMUNE GLOBULIN 300 MCG SYRINGE IM ONE (15:48)
[2021-07-01] MEDS: LACTATED RINGERS 1,000 ML IV SCH (19:14)
[2021-07-02] MEDS: IBUPROFEN 800 MG TABLET PO SCH ×2 (02:42→08:54)
[2021-07-02] MEDS: ACETAMINOPHEN 500 MG TABLET PO SCH ×2 (02:42→10:56)
[2021-07-02] MEDS: DOCUSATE SODIUM 100 MG CAPSULE PO SCH (08:54)
--- NOTE | 2021-07-02 09:39 | PROVIDER PROGRESS NOTE ---
Subjective - Subjective Subjective: S: Bonding well with baby. without difficulty. Pain is well controlled with oral medications. She was able to get some sleep last night between nursing sessions. Bleeding decreased and is light. They are feeling good about being able to go home today. Mood is good. supportive at the bedside. O: Heart RRR w/o M/G/R, lungs CTAB, abdomen soft and nontender with fundus firm at U. Perineum intact, light lochia rubra, repair with mild edema. Bilateral LE's no edema. A: 31yo -->P1 PPD#2 s/p TSVD of viable male infant 2nd degree perineal laceration - intact Rh negative Normal recovery P: Pt will be discharged today on PPD#2. (See discharge summary). Objective - Vital Signs/Intake & Output Vital Signs: Vital Signs x48h Temp Pulse Resp BP Pulse Ox 07/02/21 04:28 36.7 C 77 16 110/71 99 Intake & Output: Intake & Output 06/29/21 06/30/21 07/01/21 07/02/21 23:59 23:59 23:59 23:59 Intake Total 1737 Output Total 400 Balance 1337 - Lab Results Fish Bones: 06/30/21 18:50 06/30/21 18:50 Other Labs: Lab Results x24hrs 07/01/21 Range/Units 06:24 Weak D (Du) WEAK-D NEGATIVE Maternal Bleed NEGATIVE (NEGATIVE)
[2021-07-02 10:41] VITALS: BP 120/75
--- NOTE | 2021-07-02 12:37 | PROVIDER PROGRESS NOTE ---
Subjective - Subjective Subjective: 07/01/2021 S: Bonding well with baby. without difficulty. Pain is well controlled with oral medications. She was able to get some sleep last night between nursing sessions but feeling tired today. Bleeding decreased and is light. Mood is good. supportive at the bedside. O: Heart RRR w/o M/G/R, lungs CTAB, abdomen soft and nontender with fundus firm at U. Perineum intact, light lochia rubra, repair with mild edema. Bilateral LE's no edema. A: 31yo -->P1 PPD#1 s/p TSVD of viable male infant 2nd degree perineal laceration - intact Normal recovery P: Continue routine pp care and medications. Evaluate for discharge home tomorrow. Objective - Vital Signs/Intake & Output Vital Signs: Vital Signs x48h Temp Pulse Resp BP Pulse Ox 07/02/21 09:35 37.1 C 83 17 120/75 99 Intake & Output: Intake & Output 06/29/21 06/30/21 07/01/21 07/02/21 23:59 23:59 23:59 23:59 Intake Total 1737 Output Total 400 Balance 1337 - Lab Results Fish Bones: 06/30/21 18:50 06/30/21 18:50
--- NOTE | 2021-07-02 12:38 | Discharge Plan ---
Discharge Plan Problem Reviewed?: Yes Disposition: Home, Self Care Condition: Good Diet: Regular Activity Restrictions: No Restrictions Shower Restrictions: No Driving Restrictions: No Weight Bearing: Full Weight No Smoking: If you smoke, Please STOP! Call for help. Follow-up with: Leana Goode CNM, ARNP [Provider Admit Priv/Credential] - 2 Weeks
--- NOTE | 2021-07-02 12:44 | DISCHARGE SUMMARY ---
Discharge Summary Condition at Discharge: Good Discharge Disposition: 01 Home, Self Care - HOSPITAL COURSE Hospital Course: Date of Admission: 06/30/2021 Date of Discharge: 07/02/2021 Diagnosis on Admission: 1. 31yo @ 40.0wks gestation by LMP c/w 8.2wk U/S 2. Active labor 3. FHR Category I 4. GBS neg 5. Rh negative Diagnosis on Discharge: 1. 31yo PPD#2 s/p TSVD viable male 2. 2nd degree perineal laceration - intact 3. 4. Normal recovery. Brief History: She is a patient of [facility] who presented on 06/30/2021 with c/o contractions. SVE 8/90/0 and vertex. She was admitted for expectant management. FHR maintained a Category 1 pattern throughout labor. Pt progressed to spontaneously deliver a viable male on 06/30/2021 @ 2138. Apgars were 9/9 at 1 and 5 minutes respectively. EBL 200mL. 2nd degree perineal laceration repaired using a 2-[address]-1 needle in standard fashion and under sterile conditions. She has been doing well in her course. She is ambulating and tolerating a regular diet. She is urinating without difficulty and her lochia is normal. Her pain is well controlled with oral medications. She will be discharged home today with instructions to continue taking her vitamin while and to continue take ibuprofen and tylenol over the counter as needed for pain management. She intends to follow up with myself at [facility] in 2 weeks for routine visit or sooner if needed. She has been given precautions to call if she has any worsening fevers, chills, abdominal pain, increased vaginal bleeding or foul smelling vaginal lochia. Physical Exam: Heart RRR w/o M/G/R, lungs CTAB, abdomen soft and nontender with fundus firm at U-1, perineum intact, light lochia rubra, bilateral LE's no edema. - ALLERGIES Allergies/Adverse Reactions: Allergies Allergy/AdvReac Type Severity Reaction Status Date / Time Cephalosporins Allergy Unknown Verified 04/01/21 02:18 - MEDICATIONS Home Medications: Ambulatory Orders Medication Instructions Recorded Confirmed HYDROcod/ACETAM 5/325 [[place] 5/325] 1 - 2 ea PO Q6H PRN #14 tablet 04/01/21 Ondansetron Odt [Zofran] 4 mg TL Q6H PRN #10 tablet 04/01/21 - LABS Result Diagrams: 06/30/21 18:50 06/30/21 18:50
--- NOTE | 2021-07-02 13:18 | Labor Flowsheet ---
Labor Flowsheet Datetime Report Generated by CPN: 07/02/2021 13:17 Datetime: 07/02/2021 08:56 VITAL SIGNS NBP Sys/Marlyn/Mean (mmHg): 120 : 75 : 85 Pulse: 83 Datetime: 07/01/2021 20:04 SpO2 (%): 99 Datetime: 06/30/2021 22:30 Respirations: 16 Datetime: 06/30/2021 22:00 PAIN Pain Scale: 0 Pain Presence: None/Denies Datetime: 06/30/2021 21:44 Stage of : Recovery Datetime: 06/30/2021 21:38 UTERINE ACTIVITY Monitor Mode: Palpation Frequency (min): 3-3.5 Quality: Strong Duration (sec): 60-110 Pattern: Normal: <= 5 Contractions in 10 Minutes Resting Tone (Palpate): Relaxed ASSESSMENT A Monitor Mode: Ethologist Interventions for FHR: Ultrasound Adjusted Variability: Moderate 6-25 bpm Accelerations: None Decelerations: Late; Variable Category: Category II Comments: Provider at bedside, aware of decelerations, patient making progress with pushing with im minent delivery Datetime: 06/30/2021 21:29 FHR Baseline Rate : 150 Datetime: 06/30/2021 21:18 Membrane Status: Ruptured Membranes Rupture Method: Spontaneous Amniotic Fluid Color: Clear Amniotic Fluid Amount: Small Amniotic Fluid Odor: None Datetime: 06/30/2021 20:50 Temperature (C): 36.8 COMMUNICATION LaborFlag: Labor Datetime: 06/30/2021 19:59 Actions for Decelerations: Provider Notified Datetime: 06/30/2021 19:39 STAGE 2 Pushing: Coached on Pushing; Urge to Push Pushing Position: Pushing with Contractions; Pushing Left Side Datetime: 06/30/2021 19:34 VAGINAL EXAM Dilatation (cm): 10.0 Exam by: Leana Rupa, CNM Datetime: 06/30/2021 19:14 PATIENT CARE Patient Care Comments: Patient sitting at edge of bed, tracing interrupted, coincedence
== END 2021-07-02 11:30 | disposition home or self-care (01) | DRG 807 ==
LOC: WFO 17:54 → FBP 17:55 → WFO 18:47 → FBP 18:48
PROVIDERS: ADMIT Nurse Practitioner Obstetrics & Gynecology; ATTEND Nurse Practitioner Obstetrics & Gynecology
PROC: 10E0XZZ Delivery of Products of Conception, External Approach (ICD-10-PCS; principal; 2021-06-30)
PROC: 0KQM0ZZ Repair Perineum Muscle, Open Approach (ICD-10-PCS; 2021-06-30)
DX: O70.1 Second degree perineal laceration during delivery (principal); Z37.0 Single live birth; Z3A.40 40 weeks gestation of pregnancy; O26.893 Other specified pregnancy related conditions, third trimester; Z67.11 Type A blood, Rh negative
CPT/HCPCS: 80053; 83033; 85025; 86850; 86900; 86901; A9270; J7120; 99215

== ENCOUNTER 2021-07-04 17:30 | Outpatient (CLI) | payer OTHER ==
--- NOTE | 2021-07-04 18:42 | Labor Flowsheet ---
Labor Flowsheet Datetime Report Generated by CPN: 07/04/2021 18:42 Datetime: 07/02/2021 08:56 VITAL SIGNS NBP Sys/Marlyn/Mean (mmHg): 120 : 75 : 85 Pulse: 83 Datetime: 07/01/2021 20:04 SpO2 (%): 99 Datetime: 06/30/2021 22:30 Respirations: 16 Datetime: 06/30/2021 22:00 PAIN Pain Scale: 0 Pain Presence: None/Denies Datetime: 06/30/2021 21:44 Stage of : Recovery Datetime: 06/30/2021 21:38 UTERINE ACTIVITY Monitor Mode: Palpation Frequency (min): 3-3.5 Quality: Strong Duration (sec): 60-110 Pattern: Normal: <= 5 Contractions in 10 Minutes Resting Tone (Palpate): Relaxed ASSESSMENT A Monitor Mode: Network Control Operators Supervisor Interventions for FHR: Ultrasound Adjusted Variability: Moderate 6-25 bpm Accelerations: None Decelerations: Late; Variable Category: Category II Comments: Provider at bedside, aware of decelerations, patient making progress with pushing with im minent delivery Datetime: 06/30/2021 21:29 FHR Baseline Rate : 150 Datetime: 06/30/2021 21:18 Membrane Status: Ruptured Membranes Rupture Method: Spontaneous Amniotic Fluid Color: Clear Amniotic Fluid Amount: Small Amniotic Fluid Odor: None Datetime: 06/30/2021 20:50 Temperature (C): 36.8 COMMUNICATION LaborFlag: Labor Datetime: 06/30/2021 19:59 Actions for Decelerations: Provider Notified Datetime: 06/30/2021 19:39 STAGE 2 Pushing: Coached on Pushing; Urge to Push Pushing Position: Pushing with Contractions; Pushing Left Side Datetime: 06/30/2021 19:34 VAGINAL EXAM Dilatation (cm): 10.0 Exam by: Leana Rupa, CNM Datetime: 06/30/2021 19:14 PATIENT CARE Patient Care Comments: Patient sitting at edge of bed, tracing interrupted, coincedence
== END 2021-07-04 18:42 | disposition home or self-care (01) ==
LOC: WFO 17:30 → FBP 17:31 → WFO 18:42
PROVIDERS: ATTEND Nurse Practitioner Obstetrics & Gynecology
DX: Z53.9 Procedure and treatment not carried out, unspecified reason (principal)

== ENCOUNTER 2021-12-25 08:00 | Outpatient (CLI) | payer OTHER ==
--- NOTE | 2021-12-25 14:31 | XRAY Report ---
PROCEDURE: Finger(s) RT INDICATIONS: RIGHT INDEX FINGER INJURY TECHNIQUE: AP hand, 3 views of the first finger(s) acquired. COMPARISON: None FINDINGS: Bones: No fractures or dislocations. No suspicious bony lesions. Soft tissues: No suspicious soft tissue calcifications. IMPRESSION: No visualized acute fracture or dislocation. However, occult injury cannot be excluded. Recommend shanna rt interval imaging follow-up in 7-10 days as clinically indicated for additional evaluation. Reviewed by: Aruna Trujillo MD on 12/25/2021 2:30 PM PDT Approved by: Aruna Trujillo MD on 12/25/2021 2:30 PM PDT Station ID: [id number]
== END 2021-12-25 08:01 | disposition home or self-care (01) ==
LOC: DI.S 08:00
PROVIDERS: ATTEND Nurse Practitioner Family
DX: S69.91XA Unspecified injury of right wrist, hand and finger(s), initial encounter (principal)

== ENCOUNTER 2022-09-19 01:53 | Observation (INO) | payer OTHER ==
--- NOTE | 2022-09-19 02:28 | ED Physician Documentation ---
PD HPI ABD PAIN - Stated complaint Stated Complaint: STOMACH PX - Chief complaint Chief Complaint: Abd Pain - History obtained from History obtained from: Patient - Additional information Additional information: HPI from patient. Patient arrives by private vehicle, drove self to the emergency department. Patient complains of abdominal pain. Onset was a day and a half ago shortly after eating lunch at work. Pain was of gradual onset and is across the lower abdomen. The pain is constant and has steadily progressed in severity, and is becoming more localized to the right lower quadrant. She has had some nausea but no vomiting. The pain is exacerbated with movement and palpation, partially ameliorated with rest and lying still. Patient denies history of similar symptoms. Patient denies chance of . Patient has an IUD in place. Review of Systems Constitutional: reports: Fever (Tmax 102 yesterday evening) Cardiac: reports: Reviewed and negative Respiratory: reports: Reviewed and negative GI: reports: Abdominal Pain, Nausea. denies: Abdominal Swelling, Vomiting, Constipation, Diarrhea : denies: Dysuria, Frequency, Now EGA PD PAST MEDICAL HISTORY - Past Medical History Past Medical History: No - Past Surgical History Past Surgical History: No - Present Medications Home Medications: Ambulatory Orders Medication Instructions Recorded Confirmed HYDROcod/ACETAM 5/325 [[place] 5/325] 1 - 2 ea PO Q6H PRN #14 tablet 04/01/21 Ondansetron Odt [Zofran] 4 mg TL Q6H PRN #10 tablet 04/01/21 - Allergies Allergies/Adverse Reactions: Allergies Allergy/AdvReac Type Severity Reaction Status Date / Time Cephalosporins Allergy Unknown Verified 09/19/22 02:23 - Living Situation Living Arrangement: reports: At home - Social History Does the pt smoke?: No Smoking Status: Never smoker Does the pt drink ETOH?: No Does the pt have substance abuse?: Yes - Immunizations Immunizations are current?: Yes - POLST Patient has POLST: No PD ED PE NORMAL - Vitals Vital signs reviewed: Yes - General General: Alert and oriented X 3, No acute distress, Well developed/nourished - HEENT HEENT: Moist mucous membranes - Neck Neck: Supple, no meningeal sign - Cardiac Cardiac: RRR, No murmur - Respiratory Respiratory: No respiratory distress, Clear bilaterally - Abdomen Abdomen: Soft, Non distended, Other (TTP RLQ with voluntary guarding, no rebound. (+) Rovsing's sign) - Back Back: No CVA TTP - Derm Derm: Normal color, Warm and dry Results - Vitals Vitals: Vital Signs - 24 hr 09/19/22 09/19/22 09/19/22 02:19 05:21 07:00 Temperature 37.9 C Heart Rate 106 H 106 H 109 H Respiratory 19 16 15 Rate Blood Pressure 94/56 L 116/70 98/70 O2 Saturation 97 95 100 09/19/22 09:03 Temperature Heart Rate 99 Respiratory 15 Rate Blood Pressure 107/62 O2 Saturation 100 Oxygen O2 Source Room air - Labs Labs: Laboratory Tests 09/19/22 09/19/22 09/19/22 02:37 02:37 02:38 WBC 17.8 H RBC 4.60 Hgb 13.7 Hct 41.1 MCV 89.3 MCH 29.8 MCHC 33.3 RDW 11.9 L Plt Count 228 MPV 9.5 Neut # (Auto) 15.0 H Lymph # (Auto) 1.7 [place] # (Auto) 0.9 Eos # (Auto) 0.0 Baso # (Auto) 0.1 Absolute Nucleated RBC 0.00 Nucleated RBC % 0.0 Sodium 137 Potassium 3.4 L Chloride 101 Carbon Dioxide 27 Anion Gap 9.0 BUN 12 Creatinine 0.8 Estimated GFR (MDRD) 83 L Glucose 119 H Calcium 8.9 Total Bilirubin 1.5 H AST 16 ALT 13 Alkaline Phosphatase 83 Total Protein 8.3 H Albumin 4.5 Globulin 3.8 Albumin/Globulin Ratio 1.2 Lipase 30 Urine Color DARK YELLOW Urine Clarity CLEAR Urine pH 6.0 Ur Specific [place] >=1.030 H Urine Protein 30 H Urine Glucose (UA) NEGATIVE Urine Ketones >=80 H Urine Occult Blood SMALL H Urine Nitrite NEGATIVE Urine Bilirubin NEGATIVE Urine Urobilinogen 1 (NORMAL) Ur Leukocyte Esterase TRACE H Urine RBC 6-10 H Urine WBC 6-10 H Ur Squamous Epith Cells MOD Squamous H Urine Bacteria Few Urine Mucus Moderate Strands Ur Microscopic Review INDICATED Urine Culture Comments NOT INDICATED Urine HCG, Qual NEGATIVE - Rads (name of study) CT A/P with IV contrast Relevant Findings:: Prelim report reviewed, See rad report PD Medical Decision Making - ED course Complexity details: reviewed results, re-evaluated patient, considered differential, d/w patient ED course: Tests ordered and results reviewed by me: CBC, ear abdominal panel, urinalysis, urine hCG, CT abdomen pelvis with IV contrast. Leukocytosis noted on CBC (WBC 17). No other concerning or diagnostic findings on the blood test nor urinalysis. Urine hCG is negative. CT of the abdomen and pelvis is consistent with appendicitis. 04:25: I spoke with Dr. Sykes (surgery on-call for [facility]). She recommends IV Zosyn, IV analgesia as appropriate, n.p.o. with maintenance fluids. Dr. Sykes asks for patient to be held in the emergency department until she comes in later this morning with plan to take patient to the operating room for appendectomy. I discussed the results with the patient along with the diagnosis and the plan of treatment per the on-call surgeon. The patient initially was declining pain medication, but on this reevaluation, she is agreeable to at least starting with Toradol IV and this is ordered and administered. Departure - Departure Disposition: ED Transfer to [facility] Clinical Impression: Appendicitis Qualifiers: Appendicitis type: acute appendicitis Acute appendicitis type: with localized peritonitis Appendicitis gangrene presence: without gangrene Appendicitis perforation presence: without perforation Appendicitis abscess presence: without abscess Qualified Code(s): K35.30 - Acute appendicitis with localized perito nitis, without perforation or gangrene Condition: Good Discharge Date/Time: 09/19/22 11:11
[2022-09-19 02:46] LABS: BASOPHILS # (AUTO) 0.1 10^3/uL (0.0-0.1); BASOPHILS % (AUTO) 0.3 %; HCT - HEMATOCRIT 41.1 % (37.0-47.0); HGB - HEMOGLOBIN 13.7 g/dL (12.0-16.0); LYMPHOCYTES # (AUTO) 1.7 10^3/uL (1.5-3.5); LYMPHOCYTES % (AUTO) 9.3 %; MEAN CORPUSCULAR HEMOGLOBIN 29.8 pg (27.0-31.0); MEAN CORPUSCULAR HGB CONC 33.3 g/dL (32.0-36.0); MEAN CORPUSCULAR VOLUME 89.3 fL (81.0-99.0); MEAN PLATELET VOLUME 9.5 fL (7.9-10.8); MONOCYTES # (AUTO) 0.9 10^3/uL (0.0-1.0); MONOCYTES % (AUTO) 5.3 %; NEUTROPHILS % (AUTO) 84.4 %; PLT - PLATELET COUNT 228 10^3/uL (130-450); RED CELL DISTRIBUTION WIDTH 11.9 % (12.0-15.0); WHITE BLOOD COUNT 17.8 x10^3/uL (4.8-10.8)
[2022-09-19 02:47] LABS: GLUCOSE, URINE (UA) NEGATIVE (NEGATIVE); KETONES,URINE (UA) >=80 mg/dL (NEGATIVE); LEUKOCYTE ESTERASE, URINE TRACE (NEGATIVE); NITRITE,URINE NEGATIVE (NEGATIVE); OCCULT BLOOD,URINE SMALL (NEGATIVE); PROTEIN,URINE 30 mg/dL (NEGATIVE); UROBILINOGEN,URINE 1 (NORMAL) E.U./dL (NORMAL)
[2022-09-19 02:55] LABS: BACTERIA,URINE Few /HPF (None Seen); BILIRUBIN,URINE NEGATIVE (NEGATIVE); CLARITY,URINE CLEAR (CLEAR); HCG UR QUAL NEGATIVE; ICTOTEST,URINE NEGATIVE; MUCUS,URINE Moderate Strands; SQUAMOUS EPITHELIAL CELL,UR MOD Squamous (<= Few)
[2022-09-19 02:57] LABS: ALBUMIN 4.5 g/dL (3.2-5.5); ALBUMIN/GLOBULIN RATIO 1.2 (1.0-2.2); BILIRUBIN,TOTAL 1.5 mg/dL (0.2-1.0); CALCIUM 8.9 mg/dL (8.5-10.3); CREATININE 0.8 mg/dL (0.4-1.0); POTASSIUM 3.4 mmol/L (3.5-5.0); TOTAL PROTEIN 8.3 g/dL (6.7-8.2)
[2022-09-19] MEDS ORDERED: iohexoL-300 100 ML VIAL ONE (03:24)
[2022-09-19] MEDS ORDERED: iohexoL-300 100 ML VIAL IVP ONE (03:49)
[2022-09-19] MEDS ORDERED: SODIUM CHLORIDE 0.9% 1,000 ML IV STA (04:25)
[2022-09-19] MEDS ORDERED: PIPERACILLIN/TAZOBACTAM 3.375 GM in SODIUM CHLORIDE 0.9% MINIBAG 100 ML IV STA (04:26)
[2022-09-19] MEDS ORDERED: KETOROLAC 30 MG/ML VIAL IVP STA (04:26)
--- NOTE | 2022-09-19 10:09 | HISTORY & PHYSICAL EXAMINATION ---
Chief Complaint - Chief Complaint Chief Complaint: Abdominal pain Abdominal Pain HPI - Admitted From Admitted from: ED - History Obtained From History obtained from: Patient Exam limitations: No limitations - History of Present Illness Severity at the worst: Severe Pain Quality: Sharp Context-Pain started w/: Movement, Palpation, Position Timing: Gradual onset Duration: Hours: (36) Improved with: Nothing Worsened by: Movement HPI Comment/Other: Generalized abdominal pain for 36 hours. Now localized to the right lower quadrant overnight. Some nausea but no emesis. 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) MRSA Hx?: No Social & Family Hx - Living Situation Living Arrangement: At home - Social History Does the pt smoke?: No Smoking Status: Never smoker Does the pt drink ETOH?: Yes Does the pt have substance abuse?: No - POLST Patient has POLST: No Meds/Allgy - Home Medications Home Medications: Ambulatory Orders Medication Instructions Recorded Confirmed HYDROcod/ACETAM 5/325 [[place] 5/325] 1 - 2 ea PO Q6H PRN #14 tablet 04/01/21 Ondansetron Odt [Zofran] 4 mg TL Q6H PRN #10 tablet 04/01/21 - Allergies Allergies/Adverse Reactions: Allergies Allergy/AdvReac Type Severity Reaction Status Date / Time Cephalosporins Allergy Unknown Verified 09/19/22 02:23 Review of Systems - Gastrointestinal Gastrointestinal: reports: Abdominal pain, Nausea - All Other Systems All Other Systems: reports: Reviewed and negative Exam - Vital Signs Reviewed Vital Signs: Yes Vital Signs: Vital Signs x48h Temp Pulse Resp BP Pulse Ox 09/19/22 09:03 99 15 107/62 100 09/19/22 07:00 109 H 15 98/70 100 09/19/22 05:21 106 H 16 116/70 95 09/19/22 02:19 100.3 F 106 H 19 94/56 L 97 - Physical Exam General Appearance: positive: No acute distress, Alert Eyes Bilateral: positive: Normal inspection ENT: positive: ENT inspection nml Neck: positive: Nml inspection Respiratory: positive: Chest non-tender, No respiratory distress Cardiovascular: positive: Regular rate & rhythm Peripheral Pulses: positive: 2+ Abdomen: positive: No distention, Tenderness (Tender to palpation with localized guarding in the right lower quadrant) Back: positive: Nml inspection Skin: positive: Color nml Extremities: positive: Non-tender, Nml appearance Neurologic/Psychiatric: positive: Oriented x3 Results - Lab Results Fish Bones: 09/19/22 02:37 09/19/22 02:37 Other Lab Results: Lab Results x24hrs 09/19/22 09/19/22 09/19/22 Range/Units 02:38 02:37 02:37 WBC 17.8 H (4.8-10.8) x10^3/uL RBC 4.60 (4.20-5.40) 10^6/uL Hgb 13.7 (12.0-16.0) g/dL Hct 41.1 (37.0-47.0) % MCV 89.3 (81.0-99.0) fL MCH 29.8 (27.0-31.0) pg MCHC 33.3 (32.0-36.0) g/dL RDW 11.9 L (12.0-15.0) % Plt Count 228 (130-450) 10^3/uL MPV 9.5 (7.9-10.8) fL Neut # (Auto) 15.0 H (1.5-6.6) 10^3/uL Lymph # (Auto) 1.7 (1.5-3.5) 10^3/uL Gem # (Auto) 0.9 (0.0-1.0) 10^3/uL Eos # (Auto) 0.0 (0.0-0.7) 10^3/uL Baso # (Auto) 0.1 (0.0-0.1) 10^3/uL Absolute Nucleated RBC 0.00 x10^3/uL Nucleated RBC % 0.0 /100WBC Sodium 137 (135-145) mmol/L Potassium 3.4 L (3.5-5.0) mmol/L Chloride 101 (101-111) mmol/L Carbon Dioxide 27 (21-32) mmol/L Anion Gap 9.0 (6-13) BUN 12 (6-20) mg/dL Creatinine 0.8 (0.4-1.0) mg/dL Estimated GFR (MDRD) 83 L (>89) Glucose 119 H (70-100) mg/dL Calcium 8.9 (8.5-10.3) mg/dL Total Bilirubin 1.5 H (0.2-1.0) mg/dL AST 16 (10-42) IU/L ALT 13 (10-60) IU/L Alkaline Phosphatase 83 (42-121) IU/L Total Protein 8.3 H (6.7-8.2) g/dL Albumin 4.5 (3.2-5.5) g/dL Globulin 3.8 (2.1-4.2) g/dL Albumin/Globulin Ratio 1.2 (1.0-2.2) Lipase 30 (22-51) U/L Urine Color DARK YELLOW Urine Clarity CLEAR (CLEAR) Urine pH 6.0 (5.0-7.5) PH Ur Specific Onset >=1.030 H (1.002-1.030) Urine Protein 30 H (NEGATIVE) mg/dL Urine Glucose (UA) NEGATIVE (NEGATIVE) mg/dL Urine Ketones >=80 H (NEGATIVE) mg/dL Urine Occult Blood SMALL H (NEGATIVE) Urine Nitrite NEGATIVE (NEGATIVE) Urine Bilirubin NEGATIVE (NEGATIVE) Urine Urobilinogen 1 (NORMAL) (NORMAL) E.U./dL Ur Leukocyte Esterase TRACE H (NEGATIVE) Urine RBC 6-10 H (0-5) /HPF Urine WBC 6-10 H (0-5) /HPF Ur Squamous Epith Cells MOD Squamous H (<= Few) Urine Bacteria Few (None Seen) /HPF Urine Mucus Moderate Strands Ur Microscopic Review INDICATED Urine Culture Comments NOT INDICATED Urine HCG, Qual NEGATIVE - Diagnostic Imaging Results Diagnostic Imaging Results: positive: Prelim report reviewed, Read independently Impression/Plan - Problem List Problem List: Acute appendicitis Plan for laparoscopic appendectomy today. The patient understands the risks benefits and alternatives of the procedure and chooses to proceed.
--- NOTE | 2022-09-19 10:20 | CT Report ---
PROCEDURE: ABDOMEN/PELVIS W INDICATIONS: RLQ pain, tenderness CONTRAST: 100 ml o0mni 300 TECHNIQUE: After the administration of contrast, 5 mm thick sections acquired from the diaphragms to the symphys is. 5 mm thick coronal and sagittal reformats were acquired. For radiation dose reduction, the foll owing was used: automated exposure control, adjustment of mA and/or kV according to patient size. COMPARISON: Ultrasound retroperitoneal 04/01/2021. FINDINGS: Image quality: Excellent. Lung bases and heart: Unremarkable. Liver: No solid mass. Gallbladder and biliary tree: Physiologic distention of the gallbladder with no radiopaque gallstones . Spleen: No splenomegaly. Pancreas: No pancreatic ductal dilation. Adrenals: No adrenal nodule. Kidneys and ureters: No hydronephrosis. No renal cystic lesion which requires follow up. No solid mas s. Bowel and peritoneum: Inflammatory changes in the right lower quadrant what appears to be a blind-end ing tubular structure seen on coronal images 22 through 26 with a possible calcification in the lumen is concerning for acute appendicitis. Lymph nodes: No central or retroperitoneal adenopathy. Vessels: No infrarenal aortic aneurysm. PELVIS Reproductive organs: The uterus contains an IUD. Bladder: No abnormal wall thickening, accounting for underdistension. Pelvic lymph nodes: No pelvic adenopathy by size criteria. Bones: No aggressive osseous abnormality. Other: No significant ventral or inguinal hernia. IMPRESSION: Inflammatory changes in the right lower and what appears to be a blind ending tubular structure hari rning for early acute appendicitis. Appendiceal ultrasound or CT with oral contrast would be confirma tory if clinical findings are discordant. Findings are concordant with preliminary interpretation provided by [facility]. Reviewed by: Xavi Mcneil on 09/19/2022 9:18 AM PIPPA Approved by: Xavi Mcneil on 09/19/2022 9:18 AM PIPPA Station ID: [id number]
[2022-09-19] MEDS ORDERED: fentaNYL 100 MCG/2 ML VIAL ONE (10:25)
[2022-09-19] MEDS ORDERED: MIDAZOLAM 2 MG/2 ML VIAL ONE (10:25)
[2022-09-19] MEDS ORDERED: ROCURONIUM 50 MG/5 ML VIAL ONE (10:25)
[2022-09-19] MEDS ORDERED: ONDANSETRON 4 MG/2 ML VIAL IVP PRN ×3 (10:34→15:39)
[2022-09-19] MEDS ORDERED: MORPHINE 2 MG/ML CARPUJECT IVP PRN ×3 (10:34→15:32)
[2022-09-19] MEDS ORDERED: NALOXONE 0.4 MG/ML VIAL IVP PRN (10:34)
[2022-09-19] MEDS ORDERED: fentaNYL 100 MCG/2 ML VIAL IVP PRN (10:34)
[2022-09-19] MEDS ORDERED: ATROPINE ABBOJECT 1 MG/10 ML SYRINGE IVP PRN (10:34)
[2022-09-19] MEDS ORDERED: HYDROmorphone 0.5 MG/0.5 ML SYRINGE IVP PRN (10:34)
--- NOTE | 2022-09-19 10:34 | ANESTHESIA ---
Pre-Anesthesia VS, & Labs - Diagnosis acute appendicitis - Procedure lap appy Vital Signs: Temp Pulse Resp BP Pulse Ox O2 Flow Rate 37.9 C 99 15 107/62 100 09/19/22 02:19 09/19/22 09:03 09/19/22 09:03 09/19/22 09:03 09/19/22 09:03 Height: 5 ft 8 in Weight (kg): 58.967 kg Body Mass Index: 19.8 BMI Classification: Normal - NPO >8 hours - Is Patient ?: No - Lab Results Current Lab Results: Laboratory Tests 09/19/22 02:37: Sodium 137, Potassium 3.4 L, Chloride 101, Carbon Dioxide 27, Anion Gap 9.0, BUN 12, Creatinine 0.8, Estimated GFR (MDRD) 83 L, Glucose 119 H, Calcium 8.9, Total Bilirubin 1.5 H, AST 16, ALT 13, Alkaline Phosphatase 83, Total Protein 8.3 H, Albumin 4.5, Globulin 3.8, Albumin/Globulin Ratio 1.2, Lipase 30 09/19/22 02:37: WBC 17.8 H, RBC 4.60, Hgb 13.7, Hct 41.1, MCV 89.3, MCH 29.8, MCHC 33.3, RDW 11.9 L, Plt Count 228, MPV 9.5, Neut # (Auto) 15.0 H, Lymph # (Auto) 1.7, Mitchell # (Auto) 0.9, Eos # (Auto) 0.0, Baso # (Auto) 0.1, Absolute Nucleated RBC 0.00, Nucleated RBC % 0.0 Lab results reviewed: Yes Fish Bones: 09/19/22 02:37 09/19/22 02:37 Home Medications and Allergies Active Medications Sodium Chloride (Normal Saline 0.9%) 1,000 mls @ 150 mls/hr IV .Q6H40M STA Stop: 09/19/22 11:04 Last Admin: 09/19/22 05:09 Dose: 150 mls/hr Allergies/Adverse Reactions: Allergies Allergy/AdvReac Type Severity Reaction Status Date / Time Cephalosporins Allergy Unknown Verified 09/19/22 02:23 Anes History & Medical History - Anesthetic History Anesthesia Complications: reports: Post-Operative Nausea/Vomiting Family history of Anesthesia Complications: Reports (grandmother has history of allergy to anesthesia. 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) Endocrine/Autoimmune: reports: None Blood Disorders: reports: None Skin: reports: None Smoking Status: Never smoker Psychosocial: reports: No issues indicated History of Cancer?: No - Surgical History Orthopedic: reports: Other (femur benign tumor excision) Exam General: Alert, Oriented x3, Cooperative, No acute distress Dental: WNL Mouth Openin Fingerbreadth Neck Mobility: Normal Mallampati classification: II Thyromental Distance: 4-6 cm Mental/Cognitive Status: Alert/Oriented X3, Normal for patient Plan Anesthesia Type: General Consent for Procedure(s) Verified and Reviewed: Yes Code Status: Attempt Resuscitation ASA classification: 1-Healthy patient Is this case an emergency?: Yes
[2022-09-19] MEDS ORDERED: BUPIVACAINE 0.5%-EPI 1:200000 PF 30 ML VIAL ONE (10:53)
[2022-09-19] MEDS ORDERED: LACTATED RINGERS 1,000 ML IV SCH (11:00)
[2022-09-19] MEDS ORDERED: BUPIVACAINE 0.5%-EPI 1:200000 PF 30 ML VIAL SUBQ ONE (11:00)
[2022-09-19] MEDS ORDERED: ACETAMINOPHEN 1,000 MG/100 ML 1,000 MG/100 ML BAG IV ONE (11:30)
[2022-09-19] MEDS ORDERED: DEXAMETHASONE 4 MG/ML VIAL ONE (11:35)
[2022-09-19] MEDS ORDERED: ONDANSETRON 4 MG/2 ML VIAL ONE (11:35)
[2022-09-19] MEDS ORDERED: SODIUM CHLORIDE 0.9% MINIBAG 100 ML IV ONE (11:36)
[2022-09-19] MEDS ORDERED: SUGAMMADEX 200 MG/2 ML VIAL IVP ONE (12:15)
--- NOTE | 2022-09-19 12:16 | OPERATIVE REPORT ---
Operative Report - General Procedure Date: 09/19/22 Planned Procedure: Laparoscopic appendectomy Pre-Op Diagnosis: Acute appendicitis Procedure Performed: Laparoscopic appendectomy, drainage of intra-abdominal abscess, umbilical hernia repair Post Op Diagnosis: Acute appendicitis - Procedure Note Primary Surgeon: Onel Secondary Surgeon: none Anesthesia Provider: Katiuska Ardon CRNA Anesthesia Technique: General ET tube, Local Pathology: appendix Estimated Blood Loss (mL): 10 Indications: acute appendicitis Complications: no immediate post operative complications - Other Other Information/Narrative: The patient was Consented. She was taken to the operating room. She was placed in the supine position. General anesthesia was induced. The patient's abdomen was prepped and draped in a standard sterile fashion. A timeout was performed and preoperative antibiotics were administered with Zosyn. The patient's abdomen was entered using a transverse incision at the umbilicus. At this time the fascia was elevated and opened up with sharp dissection. There was preperitoneal fat that was stuck and a small umbilical hernia. This was dissected out using mostly blunt dissection with minimal cautery. Once this was reduced I was able to place a 5 mm trocar bluntly through the hernia defect. The abdomen was then insufflated to 15 mmHg. At this time the following trocars were placed, a 5 mm trocar in the lateral abdomen, and a 5 mm trocar in the suprapubic area. The umbilical trocar was then upsized to a 12 mm trocar under direct visualization. Local anesthetic was injected into all port sites prior to trocar placement. At this time the patient was placed in the headdown and right side up position. The right lower quadrant was visualized. There was some purulent appearing fluid which was suctioned out. Once this was done the appendix was visualized and it appeared necrotic. It was able to be dissected free until the base was visualized. The base appeared pink. A blunt window was created at the base of the appendix. This was divided using a 45 mm blue load stapler. The mesoappendix was then divided using a 45 mm white load stapler. Despite pressure being placed on the stapler there was still 1 small area of bleeding which a clip was placed. Once this was done the appendix was placed in an Endo Catch bag and removed from the 12 mm port site. This port site was then closed using a [id number] 0 Vicryl suture to close the hernia defect. At this time the right lower quadrant was visualized, hemostasis was apparent and the staple lines appeared intact. All of the purulent fluid had been suctioned out of the pelvis this area was copiously irrigated and suctioned again. At this time all trocars removed under direct visualization and the abdomen was allowed to desufflate. All incisions were closed using interrupted 4-0 Vicryl subcuticular suture and a sterile dressing with Dermabond was applied. All ne edle and sponge counts were correct at the end of the case. The patient was taken to the PACU in stable condition.
[2022-09-19] MEDS ORDERED: KETOROLAC 15 MG/ML VIAL IVP PRN (12:20)
[2022-09-19] MEDS ORDERED: SODIUM CHLORIDE FLUSH 0.9% 10 ML SYRINGE IVP PRN ×2 (12:20→15:39)
[2022-09-19] MEDS ORDERED: HYDROcod/ACETAM 5/325 MG TABLET PO PRN (12:20)
[2022-09-19] MEDS ORDERED: HYDROmorphone 1 MG/ML CARPUJECT ONE (12:20)
[2022-09-19] MEDS ORDERED: PROMETHAZINE 25 MG SUPP PR PRN ×2 (12:20→15:39)
[2022-09-19] MEDS ORDERED: LACTATED RINGERS 600 ML IV ONE (12:21)
[2022-09-19] MEDS ORDERED: PIPERACILLIN/TAZOBACTAM 3.375 GM in SODIUM CHLORIDE 0.9% MINIBAG 100 ML IV SCH (13:00)
[2022-09-19] MEDS ORDERED: D5.45NS W/20 MEQ KCL 1,000 ML IV SCH (13:00)
[2022-09-19] MEDS: D5.45NS W/20 MEQ KCL 1,000 ML IV SCH (15:35)
[2022-09-19] MEDS: HYDROcod/ACETAM 5/325 MG TABLET PO PRN ×2 (15:35→20:02)
[2022-09-19] MEDS: PIPERACILLIN/TAZOBACTAM 3.375 GM in SODIUM CHLORIDE 0.9% MINIBAG 100 ML IV SCH ×2 (15:35→21:37)
[2022-09-19] MEDS: SODIUM CHLORIDE FLUSH 0.9% 10 ML SYRINGE IVP SCH (15:44)
[2022-09-19] MEDS ORDERED: SODIUM CHLORIDE FLUSH 0.9% 10 ML SYRINGE IVP SCH (17:00)
--- NOTE | 2022-09-19 18:19 | ANESTHESIA POST OP EVALUATION ---
Anesthesia Post Eval - Post Anesthesia Eval Vitals: Last Vital Signs Temp 36.9 C 09/19/22 17:46 Pulse 84 09/19/22 17:46 Resp 16 09/19/22 17:46 BP 103/58 L 09/19/22 17:46 Pulse Ox 98 09/19/22 17:46 O2 Flow Rate CV Function Including HR & BP: Stable Pain Control: Satisfactory Nausea & Vomiting: Negative Mental Status: Baseline Respiratory Status: Airway Patent Hydration Status: Satisfactory Anesthesia Complications: None
[2022-09-19] MEDS: KETOROLAC 15 MG/ML VIAL IVP PRN (21:37)
[2022-09-20] MEDS: HYDROcod/ACETAM 5/325 MG TABLET PO PRN (00:08)
[2022-09-20] MEDS: SODIUM CHLORIDE FLUSH 0.9% 10 ML SYRINGE IVP SCH ×2 (01:02→08:38)
[2022-09-20] MEDS: PIPERACILLIN/TAZOBACTAM 3.375 GM in SODIUM CHLORIDE 0.9% MINIBAG 100 ML IV SCH ×2 (03:31→09:42)
[2022-09-20] MEDS: D5.45NS W/20 MEQ KCL 1,000 ML IV SCH (03:31)
[2022-09-20] MEDS: KETOROLAC 15 MG/ML VIAL IVP PRN ×2 (03:34→09:39)
[2022-09-20 05:22] LABS: BASOPHILS % (AUTO) 0.2 %; EOSINOPHILS % (AUTO) 0.1 %; HGB - HEMOGLOBIN 10.1 g/dL (12.0-16.0); LYMPHOCYTES # (AUTO) 1.7 10^3/uL (1.5-3.5); LYMPHOCYTES % (AUTO) 13.8 %; MEAN CORPUSCULAR HEMOGLOBIN 29.4 pg (27.0-31.0); MEAN CORPUSCULAR HGB CONC 32.6 g/dL (32.0-36.0); MEAN CORPUSCULAR VOLUME 90.4 fL (81.0-99.0); MONOCYTES # (AUTO) 0.9 10^3/uL (0.0-1.0); NEUTROPHILS # (AUTO) 9.6 10^3/uL (1.5-6.6); NEUTROPHILS % (AUTO) 78.3 %; PLT - PLATELET COUNT 147 10^3/uL (130-450); RED BLOOD COUNT 3.43 10^6/uL (4.20-5.40); RED CELL DISTRIBUTION WIDTH 11.7 % (12.0-15.0); WHITE BLOOD COUNT 12.2 x10^3/uL (4.8-10.8)
[2022-09-20 10:59] VITALS: BP 103/62
--- NOTE | 2022-09-20 11:40 | Discharge Plan ---
Discharge Plan Problem Reviewed?: Yes Disposition: Home, Self Care Condition: Good Prescriptions: metroNIDAZOLE [Flagyl] 500 mg PO BID 7 Days #14 tablet levoFLOXacin [Levaquin] 250 mg PO QD #7 tablet HYDROcod/ACETAM 5/325 [Shokan 5/325] 1 tab PO Q4H PRN #15 tablet PRN Reason: Pain Diet: Regular Shower Restrictions: No Driving Restrictions: No Plan of Treatment: DC home on PO antibiotics No Smoking: If you smoke, Please STOP! Call for help. Follow-up with: Jonathon Garza MD [Primary Care Provider] - Jer Rodriguez MD [Provider Admit Priv/Credential] -
--- NOTE | 2022-09-20 11:43 | DISCHARGE SUMMARY ---
"Discharge Summary Admit Date: 09/19/22 Discharge Date: 09/20/22 Discharging Provider: russell Condition at Discharge: Good Discharge Disposition: 01 Home, Self Care - DIAGNOSES Admission Diagnoses: acute appendicitis Discharge Diagnoses with Status of Each Condition: same - CONSULTS | PROCEDURES Procedures: laparoscopic appendectomy - HOSPITAL COURSE Hospital Course: Pt admitted for acute appendicitis. She underwent a laparoscopic appendectomy. She has had a routine post operative course. - ALLERGIES Allergies/Adverse Reactions: Allergies Allergy/AdvReac Type Severity Reaction Status Date / Time Cephalosporins Allergy Unknown Verified 09/19/22 02:23 - MEDICATIONS Home Medications: Ambulatory Orders Medication Instructions Recorded Confirmed HYDROcod/ACETAM 5/325 [Clements 5/325] 1 - 2 ea PO Q6H PRN #14 tablet 04/01/21 Ondansetron Odt [Zofran] 4 mg TL Q6H PRN #10 tablet 04/01/21 HYDROcod/ACETAM 5/325 [Clements 5/325] 1 tab PO Q4H PRN #15 tablet 09/20/22 levoFLOXacin [Levaquin] 250 mg PO QD #7 tablet 09/20/22 metroNIDAZOLE [Flagyl] 500 mg PO BID 7 Days #14 tablet 09/20/22 - PHYSICAL EXAM AT DISCHARGE General Appearance: positive: No acute distress Eyes Bilateral: positive: Normal inspection Neck: positive: Nml inspection Respiratory: positive: No respiratory distress Cardiovascular: positive: Regular rate & rhythm Peripheral Pulses: positive: 2+ Abdomen: positive: Other (soft, incision c/d/i) Extremities: positive: Nml appearance Neurologic/Psychiatric: positive: Oriented x3 - LABS Result Diagrams: 09/20/22 04:58 09/19/22 02:37"
--- NOTE | 2022-09-20 12:53 | Discharge Plan ---
Discharge Plan Problem Reviewed?: Yes Disposition: Home, Self Care Condition: Good Prescriptions: HYDROcod/ACETAM 5/325 [Peel 5/325] 1 tab PO Q4HR PRN #20 tab PRN Reason: Moderate Pain (Level 4-6) metroNIDAZOLE [Flagyl] 500 mg PO BID #14 tablet levoFLOXacin [Levaquin] 250 mg PO QD #7 tablet HYDROcod/ACETAM 5/325 [Peel 5/325] 1 tab PO Q4H PRN #15 tablet PRN Reason: Pain Shower Restrictions: No Driving Restrictions: No Instruction Topics: Appendectomy Laparoscopic Dc Plan of Treatment: DC home on PO antibiotics No Smoking: If you smoke, Please STOP! Call for help. Follow-up with: Jonathon Garza MD [Primary Care Provider] - Jer Rodriguez MD [Provider Admit Priv/Credential] -
== END 2022-09-20 12:30 | disposition home or self-care (01) ==
LOC: ED 01:53 → SDS 10:48 → ED 11:11 → MS2 12:20
PROVIDERS: ADMIT Specialist; ATTEND Specialist
PROC: 0DTJ4ZZ Resection of Appendix, Percutaneous Endoscopic Approach (ICD-10-PCS; principal; 2022-09-19 11:00)
DX: K35.33 Acute appendicitis with perforation, localized peritonitis, and gangrene, with abscess (principal); K42.9 Umbilical hernia without obstruction or gangrene
CPT/HCPCS: 36415; 44970; 74177; 80053; 81001; 81025; 83690; 85025; 99284; 99285; A9270; G0378; J0131; J1170; J7120; Q9967; 81003; 87086

== ENCOUNTER 2022-09-21 12:55 | Emergency (ER) | payer OTHER ==
[2022-09-21] MEDS ORDERED: SODIUM CHLORIDE 0.9% 1,000 ML IV STA (13:08)
[2022-09-21] MEDS ORDERED: HYDROmorphone 1 MG/ML CARPUJECT IVP STA (13:23)
--- NOTE | 2022-09-21 13:32 | ED Physician Documentation ---
PD HPI ABD PAIN - Stated complaint Stated Complaint: FEVER,DIARRHEA - Chief complaint Chief Complaint: Abd Pain - History obtained from History obtained from: Patient - Additional information Additional information: Patient presents emergency department chief complaint of increasing abdominal pain and fever after appendectomy 2 days ago. She presented early that morning with right lower quadrant abdominal pain and leukocytosis and ultimately, was taken to the operating room for what turned out to be a necrotic appendix with localized abscess. Patient had a laparoscopic appendectomy and also, had repair of an incidental umbilical hernia at the same time. She had an apparently unremarkable postoperative course in the hospital and was discharged the next day. The patient states that she has had abdominal pain ever since the surgery but that is grown markedly worse over the last 24 hours. She states that she has had some swelling around her umbilicus since the repair, but noticed today t hat even just brushing her hand lightly over the area causes exquisite pain. She is also having quite a lot of pain on the left side of her abdomen in general. The patient states that by now any movement of her abdomen or engagement of her abdominal muscles causes nearly unbearable pain. She measured a temperature of 103.5 at home this morning though after getting up and around it seemed to come down to 101. The patient was afebrile upon presentation here. She does note that she takes Erwinna for the pain and has been doing so fairly regularly since the surgery, about every 4 hours. She did not take any ibuprofen or Tylenol beyond that. The patient denies any nausea or vomiting. She has had some runny stool. No dysuria. 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 : None Musculoskeletal: Other Derm: None - Past Surgical History Past Surgical History: No Ortho: Other - Present Medications Home Medications: Ambulatory Orders Medication Instructions Recorded Confirmed HYDROcod/ACETAM 5/325 [Erwinna 5/325] 1 tab PO Q4HR PRN #20 tab 09/20/22 09/21/22 levoFLOXacin [Levaquin] 250 mg PO QD #7 tablet 09/20/22 09/21/22 metroNIDAZOLE [Flagyl] 500 mg PO BID #14 tablet 09/20/22 09/21/22 HYDROcod/ACETAM 5/325 [Erwinna 5/325] 1 - 2 tablet PO Q4HR PRN #30 tablet 09/21/22 - Allergies Allergies/Adverse Reactions: Allergies Allergy/AdvReac Type Severity Reaction Status Date / Time Cephalosporins Allergy Unknown Verified 09/21/22 13:04 - Social History Does the pt smoke?: No Smoking Status: Never smoker Does the pt drink ETOH?: No Does the pt have substance abuse?: Yes - Immunizations Immunizations are current?: Yes - POLST Patient has POLST: No PD ED PE NORMAL - Vitals Vital signs reviewed: Yes - General General: Alert and oriented X 3, No acute distress, Well developed/nourished - HEENT HEENT: Atraumatic, PERRL, EOMI, Moist mucous membranes - Neck Neck: Supple, no meningeal sign - Cardiac Cardiac: RRR, No murmur, Strong equal pulses - Respiratory Respiratory: No respiratory distress, Clear bilaterally - Abdomen Abdomen: Soft, Non distended, Other (Several small incisions noted about the patient's abdomen consistent with recent surgical history. Moderate soft tissue edema in the superior periumbilical region with exquisite tenderness but no induration or fluctuance over the area. ) - Derm Derm: Warm and dry - Extremities Extremities: No deformity - Neuro Neuro: Alert and oriented X 3 - Psych Psych: Normal mood, Normal affect - Free text exam Free text exam: Abdominal exam continued: Exquisite tenderness of both upper and lower quadrants of the left abdomen with voluntary guarding and rebound tenderness. Right abdomen is soft and moderately tender, seemingly appropriate for recent surgical history. No rebound or guarding on the right. No wound dehiscence of any of the surgical incision sites. No erythema. Results - Vitals Vitals: Oxygen O2 Source Room air - Labs Labs: Microbiology 09/21/22 13:25 Blood Culture - Final Blood - Left Arm NO GROWTH AFTER 5 DAYS 09/21/22 13:23 Blood Culture - Final Blood - Right Arm NO GROWTH AFTER 5 DAYS Laboratory Tests 09/21/22 09/21/22 09/21/22 13:23 13:23 15:05 WBC 6.8 RBC 3.89 L Hgb 11.4 L Hct 35.1 L MCV 90.2 MCH 29.3 MCHC 32.5 RDW 11.9 L Plt Count 221 MPV 9.9 Neut # (Auto) 5.5 Lymph # (Auto) 0.9 L Pierce # (Auto) 0.4 Eos # (Auto) 0.0 Baso # (Auto) 0.0 Absolute Nucleated RBC 0.00 Nucleated RBC % 0.0 Sodium 139 Potassium 3.3 L Chloride 104 Carbon Dioxide 28 Anion Gap 7.0 BUN 8 Creatinine 0.7 Estimated GFR (MDRD) 97 Glucose 122 H Calcium 8.3 L Total Bilirubin 0.5 AST 22 ALT 19 Alkaline Phosphatase 65 Total Protein 7.0 Albumin 3.2 Globulin 3.8 Albumin/Globulin Ratio 0.8 L Lipase 28 Urine Color YELLOW Urine Clarity CLEAR Urine pH 6.5 Ur Specific [place] <=1.005 Urine Protein TRACE Urine Glucose (UA) NEGATIVE Urine Ketones NEGATIVE Urine Occult Blood TRACE-INTA Urine Nitrite NEGATIVE Urine Bilirubin NEGATIVE Urine Urobilinogen 0.2 (NORMAL) Ur Leukocyte Esterase NEGATIVE Ur Microscopic Review NOT INDICATED Urine Culture Comments NOT INDICATED Nasal Adenovirus (PCR) Nasal B. parapertussis DNA (PCR) Nasal Coronavir 229E PCR Nasal Coronavir HKU1 PCR Nasal Coronavir NL63 PCR Nasal Coronavir OC43 PCR Nasal Enterovir/Rhinovir PCR Nasal Influenza B PCR Nasal Influenza A PCR Nasal Parainfluen 1 PCR Nasal Parainfluen 2 PCR Nasal Parainfluen 3 PCR Nasal Parainfluen 4 PCR Nasal RSV (PCR) Nasal B.pertussis DNA PCR Nasal C.pneumoniae (PCR) Sanjay Human Metapneumo PCR Nasal M.pneumoniae (PCR) Nasal SARS-CoV-2 (PCR) 09/21/22 15:05 WBC RBC Hgb Hct MCV MCH MCHC RDW Plt Count MPV Neut # (Auto) Lymph # (Auto) Pierce # (Auto) Eos # (Auto) Baso # (Auto) Absolute Nucleated RBC Nucleated RBC % Sodium Potassium Chloride Carbon Dioxide Anion Gap BUN Creatinine Estimated GFR (MDRD) Glucose Calcium Total Bilirubin AST ALT Alkaline Phosphatase Total Protein Albumin Globulin Albumin/Globulin Ratio Lipase Urine Color Urine Clarity Urine pH Ur Specific [place] Urine Protein Urine Glucose (UA) Urine Ketones Urine Occult Blood Urine Nitrite Urine Bilirubin Urine Urobilinogen Ur Leukocyte Esterase Ur Microscopic Review Urine Culture Comments Nasal Adenovirus (PCR) NOT DETECTED Nasal B. parapertussis DNA (PCR) NOT DETECTED Nasal Coronavir 229E PCR NOT DETECTED Nasal Coronavir HKU1 PCR NOT DETECTED Nasal Coronavir NL63 PCR NOT DETECTED Nasal Coronavir OC43 PCR NOT DETECTED Nasal Enterovir/Rhinovir PCR NOT DETECTED Nasal Influenza B PCR NOT DETECTED Nasal Influenza A PCR NOT DETECTED Nasal Parainfluen 1 PCR NOT DETECTED Nasal Parainfluen 2 PCR NOT DETECTED Nasal Parainfluen 3 PCR NOT DETECTED Nasal Parainfluen 4 PCR NOT DETECTED Nasal RSV (PCR) NOT DETECTED Nasal B.pertussis DNA PCR NOT DETECTED Nasal C.pneumoniae (PCR) NOT DETECTED Sanjay Human Metapneumo PCR NOT DETECTED Nasal M.pneumoniae (PCR) NOT DETECTED Nasal SARS-CoV-2 (PCR) NOT DETECTED - Rads (name of study) CT abd/pelvis Relevant Findings:: Final report received, See rad report (no concerning post- operative findings.) PD Medical Decision Making - ED course Complexity details: reviewed old records, reviewed results, re-evaluated patient, considered differential, d/w patient ED course: The patient was treated symptomatically in the emergency department with IV fluids and Dilaudid and worked up initially with labs and urinalysis and ultimately, sent for CT scan of the abdomen and pelvis. Work-up was unremarkable, but given the height of fever, the degree of abdominal tenderness, and the pt's stoic presentation, I was still concerned. I discussed the case with Dr. Sykes, the pt's surgeon, who stated she did not feel there was likely to be any benefit to admitting the pt, since she is already on abx and work-up is negative. She stated she could admit the pt if the pt really wanted to be admitted. I requested her input on when the pt should be followed up, in light of the current symptoms, and she stated that the pt could see Dr. Rodriguez in clinic in a 2-3 days. I was concerned that the front office staff may not understand the urgency of follow-up, and that pt's surgeon wished her seen in a short time frame, but Dr. Sykes stated she could not be of help in facilitating the follow-up since she does not work in the clinic, and that pt would have to call and tell them the time frame in which she was supposed to be seen. Given that urgent appointments are generally not given without physician direction in most of our experience with patients and their reports of follow-up difficulty, I did have our front desk clerk try to reach Dr. Rodriguez so I could touch base with him myself. However, he was not in the office and could not be reached. The clinic did have an opening the next day, though, so we did schedule follow-up for the pt then. The pt is agreeable to this plan, with the caveat that she must have a low threshold for return, should sx worsen. Departure - Departure Disposition: 01 Home, Self Care Clinical Impression: Postoperative abdominal pain with fever Condition: Stable Instructions: ED Fever Unconf Cause, ED Post Op Pain Prescriptions: HYDROcod/ACETAM 5/325 [Erwinna 5/325] 1 - 2 tablet PO Q4HR PRN #30 tablet PRN Reason: Pain Comments: You have been worked up extensively in the emergency department for your fever and postoperative pain. Your blood work shows a normal white blood cell count, which is reassuring, and your urinalysis is completely negative. You have had a CT scan of the abdomen and pelvis performed, and at this point in time, this is not showing anything that appears out of the ordinary for the surgery you just had. We do have blood cultures pending and the preliminary results should be back tomorrow. A couple of considerations are the possibility of a viral illness, which we have been seeing many causing fevers this season. Your viral panel is negative, but there are other viruses we cannot test for which can still be considered. The other consideration potentially is infectious diarrhea, caused by an imbalance of bacteria in your large intestine from being on broad- spectrum antibiotics. If you develop heavy and repeated episodes of diarrhea, it would likely be helpful to get a stool sample and culture to see if you have developed C. difficile diarrhea. Your case has been discussed with Dr. Sykes, who did your surgery, and she feels that with your work-up otherwise being negative and you being on broad-spectrum antibiotics, her suspicion for a bacterial postoperative infection is low. At this point in time, she does not feel that there is any benefit to be had for stay in the hospital but would like you to be evaluated in follow-up in a more expedited fashion. As such, we have called the surgical clinic and they have set up an appointment for 1:30 tomorrow afternoon. Please do not miss this appointment, as it is very important that you have follow-up with surgery to make sure that you are recovery is progressing as it should. As far as the pain control, a prescription for more Erwinna has been electronically transmitted to the [facility] pharmacy in [place] your request. As far as fever control, you may take 600 mg of ibuprofen every 6 hours and a total of 650 mg of Tylenol/acetaminophen every 4 hours or up to 1000 mg of Tylenol/acetaminophen every 6 hours. This should take into consideration any Erwinna you take at that time, as each tablet of Erwinna has 325 mg of acetaminophen in it. Please be sure you get plenty of fluids to drink. If at any point you feel like things are drastically worsening, please return to the emergency department immediately. Discharge Date/Time: 09/21/22 16:52
[2022-09-21 13:45] LABS: ALBUMIN 3.2 g/dL (3.2-5.5); ALBUMIN/GLOBULIN RATIO 0.8 (1.0-2.2); BILIRUBIN,TOTAL 0.5 mg/dL (0.2-1.0); CALCIUM 8.3 mg/dL (8.5-10.3); CREATININE 0.7 mg/dL (0.4-1.0); POTASSIUM 3.3 mmol/L (3.5-5.0)
[2022-09-21 13:46] LABS: BASOPHILS % (AUTO) 0.3 %; EOSINOPHILS % (AUTO) 0.4 %; HCT - HEMATOCRIT 35.1 % (37.0-47.0); HGB - HEMOGLOBIN 11.4 g/dL (12.0-16.0); LYMPHOCYTES # (AUTO) 0.9 10^3/uL (1.5-3.5); LYMPHOCYTES % (AUTO) 12.5 %; MEAN CORPUSCULAR HEMOGLOBIN 29.3 pg (27.0-31.0); MEAN CORPUSCULAR HGB CONC 32.5 g/dL (32.0-36.0); MEAN CORPUSCULAR VOLUME 90.2 fL (81.0-99.0); MEAN PLATELET VOLUME 9.9 fL (7.9-10.8); MONOCYTES # (AUTO) 0.4 10^3/uL (0.0-1.0); MONOCYTES % (AUTO) 5.9 %; NEUTROPHILS # (AUTO) 5.5 10^3/uL (1.5-6.6); NEUTROPHILS % (AUTO) 80.6 %; PLT - PLATELET COUNT 221 10^3/uL (130-450); RED BLOOD COUNT 3.89 10^6/uL (4.20-5.40); RED CELL DISTRIBUTION WIDTH 11.9 % (12.0-15.0); WHITE BLOOD COUNT 6.8 x10^3/uL (4.8-10.8)
[2022-09-21] MEDS ORDERED: iohexoL-300 100 ML VIAL ONE (13:48)
[2022-09-21] MEDS ORDERED: iohexoL-300 100 ML VIAL IVP ONE (14:09)
--- NOTE | 2022-09-21 15:02 | CT Report ---
PROCEDURE: ABDOMEN/PELVIS W INDICATIONS: severe L post-op pain CONTRAST: 100mL Omni 300 TECHNIQUE: After the administration of intravenous contrast, 5 mm thick sections acquired from the diaphragms to the symphysis. 5 mm thick coronal and sagittal reformats were acquired. For radiation dose reducti on, the following was used: automated exposure control, adjustment of mA and/or kV according to reinaldo ent size. COMPARISON: 09/19/2022 FINDINGS: Image quality: Excellent. Lung bases and heart: Small bilateral pleural effusions, right greater than left, with minimal bibasi lar atelectasis. Normal heart size. Liver: Development of mild periportal edema. No liver lesions. Hepatomegaly. Right lobe of the liver measures 23 cm. Gallbladder and biliary tree: No radiopaque stones or wall thickening. No biliary dilation. Spleen: No splenomegaly. Pancreas: No pancreatic ductal dilation. Adrenals: No adrenal nodule. Kidneys and ureters: No hydronephrosis. No renal cystic lesion which requires follow up. No solid mas s. Bowel and peritoneum: Mild prominence of the bowel suggests possible postop ileus. Appendectomy clips . Liquid colonic contents may indicate gastroenteritis. Lymph nodes: No central or retroperitoneal adenopathy. Vessels: No infrarenal aortic aneurysm. PELVIS Reproductive organs: IUD. Bladder: No abnormal wall thickening, accounting for underdistension. Pelvic lymph nodes: No pelvic adenopathy by size criteria. Bones: No aggressive osseous abnormality. Other: Periumbilical hernia contains minimal postoperative air. There are traces of free air post op underneath the right hemidiaphragm. IMPRESSION: 1. Recent postoperative, status post appendectomy, with no evidence of postoperative abscess. 2. Question postop ileus. 3. Question gastroenteritis. 4. Hepatomegaly. 5. Minimal expected postoperative free air. 6. Small bilateral pleural effusions with minimal bibasilar atelectasis. Reviewed by: Eagle Mohr MD on 09/21/2022 3:00 PM PDT Approved by: Eagle Mohr MD on 09/21/2022 3:00 PM PDT Station ID: [id number]
[2022-09-21 15:16] LABS: BILIRUBIN,URINE NEGATIVE (NEGATIVE); GLUCOSE, URINE (UA) NEGATIVE (NEGATIVE); KETONES,URINE (UA) NEGATIVE (NEGATIVE); LEUKOCYTE ESTERASE, URINE NEGATIVE (NEGATIVE); NITRITE,URINE NEGATIVE (NEGATIVE); OCCULT BLOOD,URINE TRACE-INTA (NEGATIVE); PH,URINE 6.5 PH (5.0-7.5); PROTEIN,URINE TRACE mg/dL (NEGATIVE); UROBILINOGEN,URINE 0.2 (NORMAL) E.U./dL (NORMAL)
[2022-09-21 15:19] LABS: CLARITY,URINE CLEAR (CLEAR)
[2022-09-21] MEDS ORDERED: ACETAMINOPHEN 325 MG TABLET PO STA (15:30)
[2022-09-21] MEDS ORDERED: IBUPROFEN 600 MG TABLET PO STA (15:30)
[2022-09-21 16:16] LABS: B. PARAPERTUSSIS- RESP PCR PAN NOT DETECTED; B. PERTUSSIS- RESP PCR PANEL NOT DETECTED; C. PNEUMONIAE- RESP PCR PANEL NOT DETECTED; CORONAVIRUS 229E-RESP PCR NOT DETECTED; CORONAVIRUS HKU1-RESP PCR NOT DETECTED; CORONAVIRUS NL63-RESP PCR NOT DETECTED; CORONAVIRUS OC43-RESP PCR NOT DETECTED; HUMAN METAPNEUMOVIRUS NOT DETECTED; INFLUENZA A- RESP PCR PANEL NOT DETECTED; INFLUENZA B - RESP PCR PANEL NOT DETECTED; M. PNEUMONIAE- RESP PCR PANEL NOT DETECTED; PARAINFLUENZA VIRUS 1 NOT DETECTED; PARAINFLUENZA VIRUS 2 NOT DETECTED; PARAINFLUENZA VIRUS 3 NOT DETECTED; PARAINFLUENZA VIRUS 4 NOT DETECTED; RHINOVIRUS/ENTEROVIRUS NOT DETECTED; RSV- RESP PCR PANEL NOT DETECTED; SARS-CoV-2 -RESP PCR PANEL NOT DETECTED
[2022-09-21 16:54] VITALS: BP 108/69
== END 2022-09-21 16:52 | disposition home or self-care (01) ==
LOC: ED 12:55
DX: G89.18 Other acute postprocedural pain (principal); R10.10 Upper abdominal pain, unspecified; R50.9 Fever, unspecified; Z20.822 Contact with and (suspected) exposure to COVID-19
CPT/HCPCS: 36415; 74177; 80053; 81003; 83690; 85025; 87040; 87633; 96374; 99284; A9270; J1170; Q9967; 81001; 87086

== ENCOUNTER 2023-02-05 10:30 | Outpatient (CLI) | payer OTHER ==
--- NOTE | 2023-02-05 19:57 | XRAY Report ---
PROCEDURE: Ribs w/PA Chest LT INDICATIONS: RIB PAIN TECHNIQUE: 3 views of the left ribs were acquired, along with a single view chest. COMPARISON: None. FINDINGS: Surgical changes and devices: None. Bones and chest wall: No fractures or dislocations. No suspicious bony lesions. Overlying soft tis sues appear unremarkable. Lungs and pleura: No pleural effusions or pneumothorax. Lungs appear clear. Mediastinum: Mediastinal contours appear normal. Heart size is normal. IMPRESSION: No displaced rib fracture or pneumothorax. Reviewed by: Shaheed Lamas MD on 02/05/2023 6:56 PM [facility] Approved by: Shaheed Lamas MD on 02/05/2023 6:56 PM [facility] Station ID: [id number]
== END 2023-02-05 10:31 | disposition home or self-care (01) ==
LOC: DI.S 10:30
PROVIDERS: ATTEND Nurse Practitioner Family
DX: R07.81 Pleurodynia (principal)